=== PATIENT | male | born 1975 | race Caucasian/White ===

== ENCOUNTER 2024-11-22 10:30 | Outpatient (AMB) | payer OTHER, SELFPAY ==
--- NOTE | 2024-11-22 10:38 | MHC.PC.OV ---
Vital Signs 11/22/24 10:40 Height 6 ft 0.83 in Weight 244 lb BMI 32.3 BP 134/90 H Blood Pressure Location Lt brachial Position Sitting Pulse 88 Pulse Source Pulse Oximeter Temp 97.3 F Temp Source Skin Pulse Oximetry (%) 97 Oxygen Delivery Method Room Air Intake Visit Reasons: establish care Intake Note: Patient is a new patient here to establish care for Hx of Thyroid Cancer, Gout, DM, HTN. Transferring care from Dr Sreekanth Mckenzie ([facility]). Medical records have been requested and have not received. Pt decline flu shot today. 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 Helper: Not Required per policy Accompanied by: Self / Same As Patient Allergies No Known Allergies Allergy (Verified 11/22/24 10:40) Medication List - Last Reconciled 11/22/24 by Oliver Zelaya PA-C gemfibrozil 600 mg PO DAILY glipizide 10 mg PO DAILY levothyroxine 137 mcg PO DAILY lisinopril 10 mg PO DAILY metformin 1,000 mg PO DAILY semaglutide (Ozempic) 0.5 mg subcut QWEEK Tobacco use date assessed: 11/22/24 Dental Screening Dental Screen Date: 11/22/24 Did you have a dental visit in the last 12 months?: No Did you have a dental problem in the last 6 months where you did not have access to dental care?: No Was dental information given to patient?: No HPI establish care HPI Details Patient is a 49 year male here today for new patient visit. Previous PCP was at a [facility]. Patient has a past medical history significant for type 2 diabetes obesity, Thyroid Cancer ( Total thyroidecomy 20 years ago) , hypertension and hyperlipidemia. .. Type 2 diabetes: Not regularly checking his blood sugars per was on Ozempic 0.5 mg, metformin and glipizide. Has not been on any medication few weeks due to not having refills from previous PCP .. History of thyroid cancer status post total thyroidectomy: Continues on levothyroxine indefinitely. Has had any recent follow-up or surveillance for his thyroid cancer history. Will try to establish him with [facility] thyroid specialist. .. Hypertension: Patient's blood pressure elevated today in office, again has not been taking any medication over the last few weeks. Will reestablish taking lisinopril 10 mg. Advised on monitoring blood pressure at home as well. .. Obesity: He does understand his BMI is over 30 will try to work on being more physically active and adapt to better eating habits to reduce his weight Colorectal cancer screening: Willing to do Cologuard Vaccine: Decline lfu , up-to-date with tetanus, declines pneumonia vaccine [facility] Surgical History History of thyroid surgery History of cholecystectomy Social History (Updated 11/22/24 @ 11:16 by Oliver Zelaya PA-C) Housing: House Alcohol intake: current Alcohol intake frequency: a few times a week Alcohol type: hard liquor Patient Tobacco Use Status: Never used Tobacco e-Cigarette/Vaping Use: Never Used Second Hand Smoke Exposure: No Substance Use Type: Marijuana service: No Current occupational status: employed 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 1. Little interest or pleasure in doing things: not at all 2. Feeling down, depressed, or hopeless: not at all 3. Trouble falling or staying asleep, or sleeping too much: not at all 4. Feeling tired or having little energy: not at all 5. Poor appetite or overeating: not at all 6. Feeling bad about yourself - or that you are a failure or have let yourself or your family down: not at all 7. Trouble concentrating on things, such as reading the newspaper or watching television: not at all 8. Moving or speaking so slowly that other people could have noticed. Or the opposite - being so fidgety or restless that you have been moving around a lot more than usual: not at all 9. Thoughts that you would be better off or of hurting yourself in some way: not at all Total score: 0 Depression Screening Interpretation: Negative Depression Screening Done: Yes 57636 - PHQ-9 Billing: Yes Source: Developed by Drs. Oziel Sharif, Erna Bacon, Mart Espinoza and colleagues, with an educational zunilda from [employer] Thrive Questionnaire Date Thrive assessed: 11/22/24 I am a: Patient What is your living situation today?: I have a steady place to live Within the past 12 months, did the food you bought not last and you didn't have the money to get more?: Never true Within the past 12 months, did you worry whether your food would run out before you got money to buy more?: Never true Do you have trouble paying for medicines?: No Do you have trouble getting transportation to medical appointments?: No Do you have trouble paying your heating and electricity bill?: No Do you have trouble taking care of your child, family member or friend?: No Do you have trouble with day-to-day activities such as bathing, preparing meals, shopping, managing finances, etc.?: No Are you currently unemployed and looking for a job?: No Are you interested in more education?: No Please select the resources that you would like help with: None Currently or been in a relationship where the following occur: No concerns reported THRIVE Score: 0 AUDIT C Alcohol Use Questionnaire (AUDIT-C) 1. How often do you have a drink containing alcohol?: 2-3 times a week 2. How many drinks containing alcohol do you have on a typical day when you are drinking?: 1 or 2 3. How often do you have six or more drinks on one occasion?: Less than monthly Total Score: 4 LUC-7 AMB Questionnaire LUC-7 Date LUC - 7 assessed: 11/22/24 Feeling nervous, anxious, or on edge: 0 = Not at all Not being able to stop or control worryin = Not at all Worrying too much about different things: 0 = Not at all Trouble relaxin = Not at all Being so restless that it is hard to sit still: 0 = Not at all Becoming easily annoyed or irritable: 0 = Not at all Feeling afraid as if something awful might happen: 0 = Not at all Total LUC-7 score (0-4 normal; 5-9 mild; 10-14 moderate; 15-21 severe): 0 Source: Developed by Drs. Oziel Sharif, Erna Bacon, Mart Espinoza and colleagues, with an educational zunilda from [employer] LUC-7 Assessment Billing LUC-7 Assessment Tool: LUC-7 Assessment 26079 Review of Systems Const Denies headache(s) Eyes Denies loss of vision ENT Denies vertigo, Denies dizziness, Denies headache(s) and Denies sore throat Card Denies chest pain, Denies leg edema and Denies lightheadedness Resp Denies cough, Denies hemoptysis and Denies wheezing GI Denies abdominal pain, Denies melena, Denies constipation, Denies diarrhea and Denies vomiting Denies dysuria, Denies urinary frequency and Denies urinary urgency Musc Denies arthralgias, Denies joint swelling, Denies numbness and Denies tingling Neuro Denies Abnormal speech present, Denies behavioral changes, Denies vertigo, Denies dizziness, Denies headache(s), Denies loss of vision, Denies memory loss, Denies numbness and Denies tingling Psych Denies anxiety, Denies behavioral changes, Denies depression, Denies memory loss and Denies panic attacks David/Lymph Denies easy bleeding and Denies easy bruising Aller/Immun Denies wheezing Physical exam (Primary Care) Vital Signs: Last Vital Signs Temp 97.3 F 11/22/24 10:40 BMI result Body Mass Index 32.3 Tobacco/Smoking Status: Tobacco use Status Patient Tobacco Use Status Never used Tobacco 11/22/24 10:39 Depression Screening Interpretation: Negative Currently or been in a relationship where the following occur: No concerns reported Const General: healthy appearing, no acute distress, alert and awake Nutritional Appearance: well nourished Orientation/consciousness: oriented to person, oriented to place and oriented to time HENMT Ears: TM's normal bilaterally General nose exam: Normal nasal mucous membranes and turbinates present Eyes Conjunctivae: conjunctivae normal Sclerae: sclerae normal Pupils: Equal, round and reactive pupils present Neck Neck: Yes no lymphadenopathy and Yes no JVD Thyroid: Thyroid normal Carotids: no bruits Resp Effort & Inspection: normal respiratory effort and not tachypneic Auscultation: no crackles, no rales, no rhonchi and no wheezes Cardio Rate: regular rate Rhythm: regular rhythm Heart sounds: no murmurs and normal S1 and S2 GI Palpation (GI): Soft to palpation, nontender, no hepatomegaly and no splenomegaly Auscultation: normal bowel sounds Skin General skin exam: no rashes or lesions noted and dry skin Neuro General: oriented to person, oriented to place and oriented to time Cranial nerves: Yes Equal, round and reactive pupils present Speech: No Abnormal speech present Gait exam (Neuro): Normal gait present Motor exam (neuro): no tremor noted Extrem Right upper extremity: full ROM Left upper extremity: full ROM Right lower extremity: full ROM; no edema Left lower extremity: full ROM; no edema Psych Mental Status: mental status grossly normal Speech and movement: Normal speech and movement present Affect: normal affect Attitude: cooperative Thought process: Normal thought process present Coding Level of Care Code New Pt Level 4 (38034) Diagnoses Type 2 diabetes mellitus with diabetic polyneuropathy, without long-term current use of insulin E11.42 Diabetes mellitus correction insulin use: without correction use Diabetes mellitus complication status: with neurologic complications Diabetes mellitus complication detail: with polyneuropathy Primary hypertension I10 Hypertension type: primary hypertension Hypothyroidism (acquired) E03.9 Mixed hyperlipidemia E78.2 Hyperlipidemia type: mixed hyperlipidemia History of malignant neoplasm of thyroid Z85.850 Idiopathic chronic gout of foot without tophus, unspecified laterality M1A.0790 Gout site: foot Chronicity: chronic Laterality: unspecified laterality Presence of tophus: without tophus Gout etiology: idiopathic Class 1 obesity E66.811 Colon cancer screening Z12.11 Additional Codes PHQ-9 - 60544 - PHQ-9 Billing: Yes ([id number]) LUC-7 Assessment Billing - LUC-7 Assessment Tool: LUC-7 Assessment 28469 ([id number]) Assessment & Plan Assessment & Plan (1) DMII (diabetes mellitus, type 2): Code(s): E11.9 - Type 2 diabetes mellitus without complications Category: Medical Qualifiers: Diabetes mellitus correction insulin use: without intermediate manager use Diabetes mellitus complication status: with neurologic complications Diabetes mellitus complication detail: with polyneuropathy Qualified Code(s): E11.42 - Type 2 diabetes mellitus with diabetic polyneuropathy Plan: Patient has type 2 diabetes and was on glipizide, metformin and Ozempic 0.5 mg weekly. Has not been on these medications for quite some time. He does not regularly checking his blood sugars. He is interested in a Amer[employer]re Jv continuous glucose monitor for ease of use. Goal A1c is to be below 7.0 (2) HTN (hypertension): Code(s): I10 - Essential (primary) hypertension Category: Medical Qualifiers: Hypertension type: primary hypertension Qualified Code(s): I10 - Essential (primary) hypertension Plan: Patient's blood pressure elevated today in office. Has not been on medication over last 2-3 weeks due to changing insurance and providers. Will restart lisinopril 10 mg with goal blood pressure to be below 140/90 (3) Hypothyroidism (acquired): Code(s): E03.9 - Hypothyroidism, unspecified Category: Medical Plan: Patient is status post total thyroidectomy secondary to thyroid cancer. Continues to have acquired hypothyroidism thus uses levothyroxine 137 mcg. Will try to establish him with endocrinology due to his history of thyroid cancer for surveillance (4) HLD (hyperlipidemia): Code(s): E78.5 - Hyperlipidemia, unspecified Category: Medical Qualifiers: Hyperlipidemia type: mixed hyperlipidemia Qualified Code(s): E78.2 - Mixed hyperlipidemia Plan: Patient continues on gemfibrozil for his cholesterol. Will recheck fasting lipids in if LDL 100 consider statin therapy. Goal LDL to be below 100 (5) History of malignant neoplasm of thyroid: Code(s): Z85.850 - Personal history of malignant neoplasm of thyroid Category: Medical Plan: Will try to establish him with thyroid specialist due to his history of thyroid cancer and status post total thyroidectomy (6) Gout: Code(s): M10.9 - Gout, unspecified Category: Medical Qualifiers: Gout site: foot Chronicity: chronic Laterality: unspecified laterality Presence of tophus: without tophus Gout etiology: idiopathic Qualified Code(s): M1A.0790 - Idiopathic chronic gout, unspecified ankle and foot, without tophus (tophi) Plan: Has history of gout and was on allopurinol 100 mg daily. No reason gout flares (7) Class 1 obesity: Code(s): E66.811 - Obesity, class 1 Category: Medical Plan: Patient does understand his BMI is over 30 will try to work on being more physically active and adapt to better eating habits to reduce his weight. (8) Colon cancer screening: Code(s): Z12.11 - Encounter for screening for malignant neoplasm of colon Category: Medical Plan: In need of colon cancer screening Orders: Orders Lipid Panel Today E78.5 - Hyperlipidemia, unspecified TSH reflex Free T4 Today E03.9 - Hypothyroidism, unspecified Comprehensive [place]. Panel Fast Today E11.9 - Type 2 diabetes mellitus without complications Hemoglobin A1c Today E11.9 - Type 2 diabetes mellitus without complications Uric Acid Today M1A.0790 - Idiopathic chronic gout, unspecified ankle and foot, without tophus (tophi) Microalbumin, Random (w Creat) Today I10 - Essential (primary) hypertension Complete Blood Count no Diff Today E11.9 - Type 2 diabetes mellitus without complications Referrals Cologuard Test Z12.11 - Encounter for screening for malignant neoplasm of colon Endocrinology Referral E03.9 - Hypothyroidism, unspecified, Z85.850 - Personal history of malignant neoplasm of thyroid Medications: New levothyroxine 137 mcg PO DAILY 90 days 90 tabs 1RF E03.9 - Hypothyroidism, unspecified lisinopril 10 mg PO DAILY 90 tabs 1RF I10 - Essential (primary) hypertension glipizide 10 mg PO DAILY 90 days 90 tabs 1RF E11.9 - Type 2 diabetes mellitus without complications metformin 1,000 mg PO DAILY 90 days 90 tabs 1RF E11.9 - Type 2 diabetes mellitus without complications gemfibrozil 600 mg PO DAILY 90 days 90 tabs 1RF E78.5 - Hyperlipidemia, unspecified blood-glucose meter,continuous (FreeStyle Jv 3 [place]) As directed 1 ea 0RF E11.9 - Type 2 diabetes mellitus without complications, M10.9 - Gout, unspecified allopurinol 100 mg PO DAILY 90 tabs 1RF M10.9 - Gout, unspecified semaglutide (Ozempic) 0.5 mg (0.736 mL) subcut QWEEK 4 weeks 3 mL 3RF E11.9 - Type 2 diabetes mellitus without complications blood-glucose sensor (FreeStyle Jv 3 Sensor device) As directed 1 ea 6RF E11.9 - Type 2 diabetes mellitus without complications
[2024-11-22 10:40] VITALS: BP 134/90; PULSE 88; TEMP 36.3; O2SAT 97; BMI 32.3
== END 2024-11-22 11:28 | disposition home or self-care (01) ==
PROVIDERS: PCP Physician Assistant; Visit Provider Physician Assistant
DX: E11.42 Type 2 diabetes mellitus with diabetic polyneuropathy (principal); I10 Essential (primary) hypertension; E03.9 Hypothyroidism, unspecified; E78.2 Mixed hyperlipidemia; Z85.850 Personal history of malignant neoplasm of thyroid; Z87.39 Personal history of other diseases of the musculoskeletal system and connective tissue; Z68.32 Body mass index [BMI] 32.0-32.9, adult; E66.811 Obesity, class 1; Z12.11 Encounter for screening for malignant neoplasm of colon

== ENCOUNTER → 2024-11-22 10:30 | Outpatient (BNVA) | payer OTHER, SELFPAY | PROVIDERS: PCP Physician Assistant; Visit Provider Physician Assistant | DX: E11.42 Type 2 diabetes mellitus with diabetic polyneuropathy (principal); I10 Essential (primary) hypertension; E03.9 Hypothyroidism, unspecified; E78.2 Mixed hyperlipidemia; M1A.0790 Idiopathic chronic gout, unspecified ankle and foot, without tophus (tophi); E66.811 Obesity, class 1; Z68.32 Body mass index [BMI] 32.0-32.9, adult; Z85.850 Personal history of malignant neoplasm of thyroid; Z71.3 Dietary counseling and surveillance | CPT/HCPCS: 96127; 99202 ==

== ENCOUNTER 2025-01-18 14:56 | Outpatient (AMB) | payer OTHER, SELFPAY ==
--- NOTE | 2025-01-18 15:00 | A.OFFVIS_ITS ---
Vital Signs 01/18/25 15:02 Height 6 ft Weight 247 lb 2.211 oz BMI 33.5 BP 138/90 H Blood Pressure Location Rt brachial Position Sitting Pulse 90 Pulse Source Pulse Oximeter Pulse Oximetry (%) 97 Oxygen Delivery Method Room Air Intake Visit Reasons: Hypothyroidism Intake Note: New patient present today for Hypothyroidism office visit. 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 Required: No Accompanied by: Spouse Allergies No Known Allergies Allergy (Verified 01/18/25 15:02) Medication List - Last Reconciled 01/18/25 by Zaida Jose MD allopurinol 100 mg PO DAILY blood-glucose meter,continuous (FreeStyle Jv 3 [place]) As directed blood-glucose sensor (FreeStyle Jv 3 Sensor device) As directed gemfibrozil 600 mg PO DAILY 90 days glipizide 10 mg PO DAILY 90 days levothyroxine 175 mcg PO DAILY 30 days lisinopril 10 mg PO DAILY metformin 1,000 mg PO DAILY 90 days metoprolol succinate ER 25 mg PO DAILY semaglutide (Ozempic) 0.5 mg (0.736 mL) subcut QWEEK 4 weeks HPI Comments Details: 49-year-old male here today for establishing care of past history of thyroid cancer status post total thyroidectomy in now with postsurgical hypothyroidism. Here with [facility]. History of thyroid cancer in detail 1991: 17 years old , lobectomy with Dr. Yolande Oscar , unclear what type of thyroid cancer and what side was removed Lost to follow up 2010:s/p completion thyroidectomy [facility] 2010: s/p SUN treatment , says was in the hospital for 3 days lost to follow up again No recent US of the neck Was just seeing PCP: Dr. Raymond at [facility] office , they didnt give history of thyroid cancer to PCP Currently on levothyroxine 175 mcg daily , says misses dose once a while He currenlty takes it between 7 to 9 pm, dinner 5 pm , taking it with other pills No compressive symptoms Patient currently denies heat or cold intolerance, diarrhea or constipation, hair loss, palpitation, anxiety, weight changes, mood changes, low energy, changes in appearance of eyes or vision changes, tremors, increased diaphoresis or dry skin. ? Patient denies any history of childhood neck radiation. Denies having ever used lithium, amiodarone or biotin supplements. Patient denies any family history of thyroid cancer . Mother : hypothyroidism Never smoker Smokes marijuana Works with [employer] Physical exam General: sitting comfortably in no acute distress HEENT: normocephalic/atraumatic, Neck: supple, no palpable lymph nodes or masses Cardiac: normal heart sounds Pulm: normal breath sounds B/L, no added breath sounds Abd: not distended, no tenderness Extremities: no edema, no signs of myxedema PFSH Surgical History History of thyroid surgery History of cholecystectomy Social History (Updated 11/22/24 @ 11:16 by Oliver Zleaya PA-C) Housing: House Alcohol intake: current Alcohol intake frequency: a few times a week Alcohol type: hard liquor Patient Tobacco Use Status: Never used Tobacco e-Cigarette/Vaping Use: Never Used Second Hand Smoke Exposure: No Substance Use Type: Marijuana service: No Current occupational status: employed 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 Yolande Oscar and was found to have thyroid cancer. Subsequently was lost to follow up and then in 2009 underwent completion thyroidectomy at [facility] and radioactive iodine treatment, unknown dose,, and then lost to follow up again. We do not have any of these records. Unclear AJCC stage, unknown SHAMEKA initial risk of recurrence. Has not been followed recently so we do not have SHAMEKA current status either. Patient has just being seen his primary care physician for the last few years, and did not mentioned to them that he had history of thyroid cancer. He just recently established care at our hospital with PCP in our system. He does not have any compressive symptoms, no palpable lymph nodes or masses on my exam today. He is on levothyroxine 175 mcg daily. He has been taking it at night along with a his other meds, sometimes too soon after dinner, I explained to the patient importance of taking the medication 1st thing in the morning on an empty stomach and waiting at least 40 minutes to an hour before having breakfast or tea or coffee to allow for adequate absorption. I explained to the patient importance of monitoring for recurrence with surveillance ultrasounds as well as tumor markers. At this time we do not even know what type of thyroid cancer he had. We will check thyroglobulin tumor markers as well as thyroid function tests. We will also get an ultrasound of the neck. We will try to obtain his pathology from 2009 at least. Plan: -continue levothyroxine 175 mcg daily -ordered ultrasound of the neck -ordered TSH, free T4, TG and TG antibody levels -obtain records from [facility] from 2009 for surgical pathology -follow up in 6 weeks (2) Hypothyroidism (acquired): Code(s): E03.9 - Hypothyroidism, unspecified Category: Medical Plan: No recent TFTs in the system. Continue levothyroxine 175 mcg daily, obtain TSH, free T4 Plan I spent 45 minutes in reviewing the record, seeing the patient and documenting in the medical record. Orders: Orders US soft tiss head and/or neck Today E03.9 - Hypothyroidism, unspecified, Z85.850 - Personal history of malignant neoplasm of thyroid Thyroglobulin Today E03.9 - Hypothyroidism, unspecified, Z85.850 - Personal history of malignant neoplasm of thyroid Thyroglobulin Antibodies Today E03.9 - Hypothyroidism, unspecified, Z85.850 - Personal history of malignant neoplasm of thyroid Thyroid Stimulating Hormone Today E03.9 - Hypothyroidism, unspecified, Z85.850 - Personal history of malignant neoplasm of thyroid Free T4 (Free Thyroxine) Today E03.9 - Hypothyroidism, unspecified, Z85.850 - Personal history of malignant neoplasm of thyroid Thyroglobulin Tumor Marker Today E03.9 - Hypothyroidism, unspecified, Z85.850 - Personal history of malignant neoplasm of thyroid Patient Instructions: do blood work today Do ultrasound of the neck, somebody is going to call you to schedule this Follow up in 6 weeks to discuss results Coding Level of Care Code New Pt Level 4 (37560) Complex EM visit Add On G2211 Diagnoses History of malignant neoplasm of thyroid Z85.850 Hypothyroidism (acquired) E03.9 Time Spent (min) 45
[2025-01-18 15:02] VITALS: BP 138/90; PULSE 90; O2SAT 97; BMI 33.5
== END 2025-01-18 15:35 | disposition home or self-care (01) ==
LOC: HO.ENCR 14:56
PROVIDERS: PCP Physician Assistant; Visit Provider Student in an Organized Health Care Education/Training Program
DX: Z85.850 Personal history of malignant neoplasm of thyroid (principal); E03.9 Hypothyroidism, unspecified
CPT/HCPCS: 99204; G2211

== ENCOUNTER 2025-01-18 14:56 | Outpatient (REF) | payer OTHER, SELFPAY ==
[2025-01-18 16:51] LABS: Free T4 (Free Thyroxine) 1.08 ng/dL (0.71-1.85); Thyroid Stimulating Hormone 9.15 uIU/mL (0.32-4.0)
[2025-01-19 22:33] LABS: Thyroglobulin <0.1 ng/mL; Thyroglobulin Antibodies <1 IU/mL (< or = 1)
[2025-01-23 07:24] LABS: Thyroglobulin Antibody <1 IU/mL (<=1); Thyroglobulin Level <0.1 ng/mL
== END 2025-01-18 14:57 | disposition home or self-care (01) ==
LOC: HO.LAB 14:56
PROVIDERS: PCP Physician Assistant; Visit Provider Student in an Organized Health Care Education/Training Program
DX: E03.9 Hypothyroidism, unspecified (principal); Z85.850 Personal history of malignant neoplasm of thyroid; Z76.89 Persons encountering health services in other specified circumstances
CPT/HCPCS: 36415; 84432; 84439; 84443; 86800; 99202

== ENCOUNTER 2025-03-24 09:34 | Outpatient (REF) | payer OTHER, SELFPAY ==
[2025-03-24 10:25] LABS: Hematocrit 41.1 % (42.0-52.0); Mean Corpuscular HGB Conc 34.1 g/dl (31.0-36.0); Mean Corpuscular Hemoglobin 29.2 pg (27.0-33.0); Mean Corpuscular Volume 85.8 fL (80.0-98.0); Mean Platelet Volume 10.5 fL (9.4-12.4); Platelet Count 210 X10*3/uL (160-400); Red Blood Count 4.79 X10*6/uL (4.60-5.80); Red Cell Distribution Width 12.6 % (11.0-16.0); White Blood Count 5.3 X10*3/uL (4.8-10.8)
[2025-03-24 10:36] LABS: Estimated Average Glucose 235 mg/dL; Hemoglobin A1C 305.5076 umol/L; Hemoglobin A1c % 9.8 % (<6.0)
[2025-03-24 10:57] LABS: Alanine Aminotransferase 41 U/L (0-40); Albumin Level 4.6 g/dL (3.5-5.0); Alkaline Phosphatase 73 U/L (39-117); Anion Gap 14 (12-20); Aspartate Amino Transferase 29 U/L (5-37); Bilirubin Total 0.8 mg/dL (0.0-1.0); Blood Urea Nitrogen 18 mg/dL (9-16); Calcium 9.5 mg/dL (8.4-10.2); Carbon Dioxide 26 mmol/L (22-29); Chloride 104 mmol/L (96-108); Cholesterol 178 mg/dL (<200); Estimated Glomerular Filt Rate > 60; Glucose Fasting 138 mg/dL (60-99); HDL Cholesterol 32 mg/dL (>40); LDL Cholesterol Calculated 92 mg/dL (<100); Potassium 4.3 mmol/L (3.3-5.1); Sodium 140 mmol/L (135-145); Total Protein 7.5 g/dL (6.5-8.0); Triglycerides 274 mg/dL (<150)
[2025-03-24 11:19] LABS: Uric Acid 7.1 mg/dL (3.4-7.0)
== END 2025-03-24 09:35 | disposition home or self-care (01) ==
LOC: HO.LAB 09:34
PROVIDERS: Absent Provider Student in an Organized Health Care Education/Training Program; PCP Physician Assistant; Visit Provider Physician Assistant
DX: E11.9 Type 2 diabetes mellitus without complications (principal); E78.5 Hyperlipidemia, unspecified; E03.9 Hypothyroidism, unspecified; M1A.0790 Idiopathic chronic gout, unspecified ankle and foot, without tophus (tophi)
CPT/HCPCS: 36415; 80053; 80061; 83036; 84439; 84443; 84550; 85027

== ENCOUNTER 2025-03-27 16:01 | Outpatient (REF) | payer OTHER, SELFPAY ==
--- NOTE | ~2025-03-27 | US_ITS ---
CLINICAL HISTORY: E03.9 - Hypothyroidism, unspecified --- Additional Notes or Special Instructions: H X OF MALIGNANT NEOPLASM OF THYROID Soft tissue ultrasound of the neck Comparison: None Findings: Grayscale and color Doppler images of lymph nodes in the neck were obtained with a high-frequency linear transducer in a patient status post thyroidectomy due to malignancy. No lymph nodes of abnormal morphology or size. Right neck level: IA: Measuring 0.7 x 0.6 x 0.7 cm and 0.8 x 0.5 x 0.4 cm IB: Measuring 1.0 x 0.5 x 1.0 cm 0.7 x 0.4 x 0.9 cm II: Measuring 2.5 x 0.5 x 1.1 cm III: Measuring 1.2 x 0.4 x 0.5 cm IV: None V: None Left neck level: IA: None IB: Measuring 0.7 x 0.5 x 0.6 cm 0.9 x 0.6 x 0.5 cm II: None III: Measuring 2.0 x 0.9 x 0.8 cm and 0.8 x 0.3 x 0.8 cm IV: None V: Measuring 0.8 x 0.4 x 0.8 cm and 0.8 x 0.4 x 0.7 cm Impression: No suspicious lymph nodes. This document has been electronically signed by: Bernadine Mayers MD on 03/28/2025 21:47:03
== END 2025-03-27 16:02 | disposition home or self-care (01) ==
LOC: HO.US 16:01
PROVIDERS: PCP Physician Assistant; Visit Provider Student in an Organized Health Care Education/Training Program
DX: E03.9 Hypothyroidism, unspecified (principal); Z85.850 Personal history of malignant neoplasm of thyroid
CPT/HCPCS: 76536

== ENCOUNTER → 2025-03-27 16:03 | Outpatient (BNV) | payer OTHER, SELFPAY | PROVIDERS: PCP Physician Assistant; Visit Provider Radiology Diagnostic Radiology | DX: E03.9 Hypothyroidism, unspecified (principal) | CPT/HCPCS: 76536 ==

== ENCOUNTER 2025-04-04 15:58 | Outpatient (AMB) | payer OTHER, SELFPAY ==
--- OUTSIDE RECORDS SUMMARY | 2025-04-04 16:01 | XMS_ITS | Encounter Summary ---
Author Organization [facility] Address [address] [place] [address] Care Team Providers Care Internal Grinding Machine Operator Name Role Phone Rogerio Pate MD Primary Care Provider + [phone] [facility], Pcp Primary Care Provider [facility] Rogerio Pate MD Primary Care Provider + [phone] Reason for Visit * Reason Onset Date Comments APPOINTMENT 03/17/2013 Encounter Details Date Type Department Care Team Description 03/17/2013 Telephone Adult Medicine [address] [id number] Orlin Solis MD APPOINTMENT Social History Tobacco Use Types Packs/Day Years Used Date Smoking Tobacco: Never Smokeless Tobacco: Never Alcohol Use Standard Drinks/Week Comments Not Asked 0 (1 standard drink = 0.6 oz pur e alcohol) Sex Assigned at Date Recorded Not on file documented as of this encounter Miscellaneous Notes * Telephone Encounter - Radha Meyers M.A. - 03/17/2013 3:57 PM EDT Message left for patient to return my call. * Telephone Encounter - Mildred Paul - 03/17/2013 1:42 PM EDT Follow up appointment not available. Please call patient to book-no open NON PUBLIC SLOTS. Appointment needed patient had a follow up with Dr Solis today however because he is at work it needs to be r/s next appt too far, please call to book sooner if possible documented in this encounter Plan of Treatment Not on file documented as of this encounter Visit Diagnoses Not on filedocumented in this encounter Care Teams Internal Grinding Machine Operator Relationship Specialty Start Date End Date Rogerio Pate MD [address] [place] [id number] PCP - General 04/13/1997 09/13/13 [facility], [address] [id number] PCP - General Internal Medicine 09/14/13 09/14/13 Rogerio Pate MD [address] [place] [id number] PCP - General Internal Medicine 09/15/13 documented as of this encounter
--- NOTE | 2025-04-04 16:05 | A.OFFPC_ITS ---
Vital Signs 04/04/25 16:06 Height 6 ft Weight 238 lb 6 oz BMI 32.3 BP 136/68 Blood Pressure Location Lt brachial Position Sitting Pulse 86 Pulse Source Pulse Oximeter Temp 97.3 F Temp Source Temporal Artery Scan Pulse Oximetry (%) 97 Oxygen Delivery Method Room Air Intake Visit Reasons: f/u DMII / HTN Intake Note: Patient is here to follow up on DM, HTN. Sales Contracts Analyst Required: No Air Intercept Controller: Not Required per policy Accompanied by: Self / Same As Patient Allergies lisinopril Adverse Reaction (Intermediate, Uncoded 04/04/25 16:18) Dizziness Medication List - Last Reconciled 04/04/25 by Oliver Zelaya PA-C allopurinol 100 mg PO DAILY gemfibrozil 600 mg PO DAILY 90 days glipizide 10 mg PO DAILY 90 days levothyroxine 175 mcg PO DAILY 30 days lisinopril 10 mg PO DAILY metformin 1,000 mg PO DAILY 90 days metoprolol succinate ER 25 mg PO DAILY semaglutide (Ozempic) 0.5 mg (0.736 mL) subcut QWEEK 4 weeks Tobacco use date assessed: 04/04/25 Dental Screening Dental Screen Date: 11/22/24 HPI f/u DMII / HTN HPI Details Patient is a 49 year male here today for a follow-up visit. Patient has a past medical history significant for type 2 diabetes obesity, Thyroid Cancer ( Total thyroidecomy 20 years ago) , hypertension and hyperlipidemia. .. Type 2 diabetes: Not regularly checking his blood sugars per was on Ozempic 0.5 mg, metformin and glipizide. Most recent fasting blood sugar 138 and A1c above 9. He is not having any polydipsia or polyuria. PLAN: Will increase his Ozempic to 1 mg for better glycemic control .. History of thyroid cancer status post total thyroidectomy: Continues on levothyroxine indefinitely. Has been taking his levothyroxine morning now. Most recent TSH stable, has establish care with thyroid human resources compliance manager .. Hypertension: Blood pressure acceptable today in office. He has stopped taking lisinopril 10 mg as he felt dizzy. Will transitioned to losartan for renal protection. .. Obesity: He does understand his BMI is over 30 will try to work on being more physically active and adapt to better eating habits to reduce his weight Laboratory Tests 01/18/25 03/24/25 16:02 09:47 Fasting Glucose 138 H Hemoglobin A1c % 9.8 H Uric Acid 7.1 H Triglycerides 274 H TSH 9.15 H 4.00 PFSH Surgical History History of thyroid surgery History of cholecystectomy Social History Housing: House Alcohol intake: current Alcohol intake frequency: a few times a week Alcohol type: hard liquor Patient Tobacco Use Status: Never used Tobacco e-Cigarette/Vaping Use: Never Used Second Hand Smoke Exposure: No Substance Use Type: Marijuana service: No Current occupational status: employed 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- [employer] Cognitive needs: No Hearing needs: No Vision needs: Yes (Glasses) Questionnaire Thrive Questionnaire Date Thrive assessed: 11/22/24 I am a: Patient What is your living situation today?: I have a steady place to live Within the past 12 months, did the food you bought not last and you didn't have the money to get more?: Never true Within the past 12 months, did you worry whether your food would run out before you got money to buy more?: Never true Do you have trouble paying for medicines?: No Do you have trouble getting transportation to medical appointments?: No Do you have trouble paying your heating and electricity bill?: No Do you have trouble taking care of your child, family member or friend?: No Do you have trouble with day-to-day activities such as bathing, preparing meals, shopping, managing finances, etc.?: No Are you currently unemployed and looking for a job?: No Are you interested in more education?: No Please select the resources that you would like help with: None Currently or been in a relationship where the following occur: No concerns reported THRIVE Score: 0 LUC-7 AMB Questionnaire LUC-7 Date LUC - 7 assessed: 11/22/24 Source: Developed by Drs. Oziel Sharif, Erna Bacon, Mart Espinoza and colleagues, with an educational zunilda from [employer]. Review of Systems Const Denies headache(s) Eyes Denies loss of vision ENT Denies vertigo, Denies dizziness, Denies headache(s) and Denies sore throat Card Denies chest pain, Denies leg edema and Denies lightheadedness Resp Denies cough, Denies hemoptysis and Denies wheezing GI Denies abdominal pain, Denies melena, Denies constipation, Denies diarrhea and Denies vomiting Denies dysuria, Denies urinary frequency and Denies urinary urgency Musc Denies arthralgias, Denies joint swelling, Denies numbness and Denies tingling Neuro Denies Abnormal speech present, Denies behavioral changes, Denies vertigo, Denies dizziness, Denies headache(s), Denies loss of vision, Denies memory loss, Denies numbness and Denies tingling Psych Denies anxiety, Denies behavioral changes, Denies depression, Denies memory loss and Denies panic attacks David/Lymph Denies easy bleeding and Denies easy bruising Aller/Immun Denies wheezing Physical exam (Primary Care) Vital Signs: Last Vital Signs Temp 97.3 F 04/04/25 16:06 Pulse 86 04/04/25 16:06 BP 136/68 04/04/25 16:06 Pulse Ox 97 04/04/25 16:06 Oxygen Delivery Method Room Air 04/04/25 16:06 BMI result Body Mass Index 32.3 BMI Assessment/Plan discussion: High BMI High, discussed plan: lifestyle, weight reduction, dietary and physical activity Tobacco/Smoking Status: Tobacco use Status Tobacco use date assessed 04/04/25 04/04/25 16:11 Patient Tobacco Use Status Never used Tobacco 04/04/25 16:11 e-Cigarette/Vaping Use Never Used 04/04/25 16:11 Thrive Assessment: Date of Thrive Assessment Date Thrive assessed 11/22/24 04/04/25 16:11 Currently or been in a relationship where the following occur: No concerns reported Const Other: Obese General: healthy appearing, no acute distress, alert and awake Nutritional Appearance: well nourished Orientation/consciousness: oriented to person, oriented to place and oriented to time HENMT Ears: TM's normal bilaterally General nose exam: Normal nasal mucous membranes and turbinates present Eyes Conjunctivae: conjunctivae normal Sclerae: sclerae normal Pupils: Equal, round and reactive pupils present Neck Neck: Yes no lymphadenopathy and Yes no JVD Thyroid: Thyroid normal Carotids: no bruits Resp Effort & Inspection: normal respiratory effort and not tachypneic Auscultation: no crackles, no rales, no rhonchi and no wheezes Cardio Rate: regular rate Rhythm: regular rhythm Heart sounds: no murmurs and normal S1 and S2 GI Palpation (GI): Soft to palpation, nontender, no hepatomegaly and no splenomegaly Auscultation: normal bowel sounds Skin General skin exam: no rashes or lesions noted and dry skin Neuro General: oriented to person, oriented to place and oriented to time Cranial nerves: Yes Equal, round and reactive pupils present Speech: No Abnormal speech present Gait exam (Neuro): Normal gait present Motor exam (neuro): no tremor noted Extrem Right upper extremity: full ROM Left upper extremity: full ROM Right lower extremity: full ROM; no edema Left lower extremity: full ROM; no edema Psych Mental Status: mental status grossly normal Speech and movement: Normal speech and movement present Affect: normal affect Attitude: cooperative Thought process: Normal thought process present Coding Level of Care Code Est Pt Level 4 (00894) Diagnoses Type 2 diabetes mellitus with diabetic polyneuropathy, without long-term current use of insulin E11.42 Diabetes mellitus complication detail: with polyneuropathy Diabetes mellitus complication status: with neurologic complications Diabetes mellitus prison insulin use: without prison use Primary hypertension I10 Hypertension type: primary hypertension Hypothyroidism (acquired) E03.9 Mixed hyperlipidemia E78.2 Hyperlipidemia type: mixed hyperlipidemia History of malignant neoplasm of thyroid Z85.850 Class 1 obesity E66.811 Assessment & Plan Assessment & Plan (1) DMII (diabetes mellitus, type 2): Code(s): E11.9 - Type 2 diabetes mellitus without complications Category: Medical Qualifiers: Diabetes mellitus complication detail: with polyneuropathy Diabetes mellitus complication status: with neurologic complications Diabetes mellitus rayon winder insulin use: without prison use Qualified Code(s): E11.42 - Type 2 diabetes mellitus with diabetic polyneuropathy Plan: Patient's type 2 diabetes suboptimally controlled with A1c above 9. Will increase his Ozempic to 1 mg weekly for better glycemic control. He has lost 10 lb since last office visit. Will discontinue glipizide as he has been on this for quite some in concern for pancreatic burnout. Will consider increasing his metformin to a 1000 b.i.d. He does not often take his blood sugar though when he does he reports his blood sugars are usually in the 200s. Goal A1c is to be below 7.0 (2) HTN (hypertension): Code(s): I10 - Essential (primary) hypertension Category: Medical Qualifiers: Hypertension type: primary hypertension Qualified Code(s): I10 - Essential (primary) hypertension Plan: Patient's blood pressure acceptable today in office.. He had restarted lisinopril 10 mg though felt dizzy with the medication. will transitioned to losartan 25 mg for renal protection. Goal blood pressure to be below 140/90 (3) Hypothyroidism (acquired): Code(s): E03.9 - Hypothyroidism, unspecified Category: Medical Plan: Patient is status post total thyroidectomy secondary to thyroid cancer. Continues to have acquired hypothyroidism thus uses levothyroxine 137 mcg. He has establish with endocrinology thyroid specialist. Most recent TSH stabilized (4) HLD (hyperlipidemia): Code(s): E78.5 - Hyperlipidemia, unspecified Category: Medical Qualifiers: Hyperlipidemia type: mixed hyperlipidemia Qualified Code(s): E78.2 - Mixed hyperlipidemia Plan: Patient continues on gemfibrozil for his cholesterol. Will recheck fasting lipids in if LDL 100 consider statin therapy. Goal LDL to be below 100 (5) History of malignant neoplasm of thyroid: Code(s): Z85.850 - Personal history of malignant neoplasm of thyroid Category: Medical Plan: He is status post thyroidectomy, has establish care with a new human resources compliance manager here in [place]. He has started taking his levothyroxine in the morning on an empty stomach. Most recent TSH was stable. (6) Class 1 obesity: Code(s): E66.811 - Obesity, class 1 Category: Medical Plan: Have noted weight loss since last office visit, will increase his Ozempic dose to 1 mg in hopes he will be able to lose more weight and get better glycemic control. Orders: Orders Hemoglobin A1c 04/04/25 E11.42 - Type 2 diabetes mellitus with diabetic polyneuropathy Comprehensive [place]. Panel Fast 04/04/25 E11.42 - Type 2 diabetes mellitus with diabetic polyneuropathy Complete Blood Count no Diff 04/04/25 E11.42 - Type 2 diabetes mellitus with diabetic polyneuropathy TSH reflex Free T4 04/04/25 E03.9 - Hypothyroidism, unspecified Medications: New losartan 25 mg PO DAILY 30 tabs 1RF 30 days I10 - Essential (primary) hypertension semaglutide (Ozempic) 1 mg (0.75 mL) subcut QWEEK 3 mL 3RF 4 weeks E11.42 - Type 2 diabetes mellitus with diabetic polyneuropathy Refilled levothyroxine 175 mcg PO DAILY 30 tabs 3RF 30 days E03.9 - Hypothyroidism, unspecified metformin 1,000 mg PO DAILY 90 tabs 1RF 90 days E11.9 - Type 2 diabetes mellitus without complications allopurinol 100 mg PO DAILY 90 tabs 1RF M10.9 - Gout, unspecified gemfibrozil 600 mg PO DAILY 90 tabs 1RF 90 days E78.5 - Hyperlipidemia, unspecified Discontinued semaglutide (Ozempic) Discontinued Reason: Doctor's Order 0.5 mg (0.736 mL) subcut QWEEK 4 weeks 3 mL 3RF E11.9 - Type 2 diabetes mellitus without complications
[2025-04-04 16:06] VITALS: BP 136/68; PULSE 86; TEMP 36.3; O2SAT 97; BMI 32.3
== END 2025-04-04 16:28 | disposition home or self-care (01) ==
LOC: HO.HMCH 15:59
PROVIDERS: PCP Physician Assistant; Visit Provider Physician Assistant
DX: E11.42 Type 2 diabetes mellitus with diabetic polyneuropathy (principal); I10 Essential (primary) hypertension; E66.811 Obesity, class 1; Z68.32 Body mass index [BMI] 32.0-32.9, adult; E03.9 Hypothyroidism, unspecified; E78.2 Mixed hyperlipidemia; Z85.850 Personal history of malignant neoplasm of thyroid

== ENCOUNTER → 2025-04-04 15:58 | Outpatient (BNVA) | payer OTHER, SELFPAY | PROVIDERS: PCP Physician Assistant; Visit Provider Physician Assistant | DX: E11.42 Type 2 diabetes mellitus with diabetic polyneuropathy (principal); I10 Essential (primary) hypertension; E89.0 Postprocedural hypothyroidism; E78.2 Mixed hyperlipidemia; E66.811 Obesity, class 1; Z85.850 Personal history of malignant neoplasm of thyroid; Z68.32 Body mass index [BMI] 32.0-32.9, adult | CPT/HCPCS: 99212 ==

== ENCOUNTER 2025-04-09 10:47 | Outpatient (AMB) | payer OTHER, SELFPAY ==
--- NOTE | 2025-04-09 10:49 | A.OFFVIS_ITS ---
Vital Signs 04/09/25 10:50 Height 6 ft Weight 235 lb 14.314 oz BMI 32.0 BP 138/92 H Blood Pressure Location Lt brachial Position Sitting Pulse 86 Pulse Source Pulse Oximeter Pulse Oximetry (%) 97 Oxygen Delivery Method Room Air Intake Visit Reasons: Hypothyroidism Intake Note: Patient present today for Hypothyroidism office visit. White Sourer Required: No Accompanied by: Self / Same As Patient Allergies lisinopril Adverse Reaction (Intermediate, Uncoded 04/09/25 10:55) Dizziness Medication List - Last Reconciled 04/09/25 by Zaida Jose MD allopurinol 100 mg PO DAILY gemfibrozil 600 mg PO DAILY 90 days levothyroxine 175 mcg PO DAILY 30 days losartan 25 mg PO DAILY 30 days metformin 1,000 mg PO DAILY 90 days metoprolol succinate ER 25 mg PO DAILY semaglutide (Ozempic) 1 mg (0.75 mL) subcut QWEEK 4 weeks HPI Comments Details: 49-year-old male here today for follow up of past history of thyroid cancer status post total thyroidectomy in now with postsurgical hypothyroidism. Here with Kaylin. History of thyroid cancer in detail 1991: 17 years old , lobectomy with Dr. Yolande Oscar , unclear what type of thyroid cancer and what side was removed Lost to follow up 2010:s/p completion thyroidectomy [place] [facility] 2010: s/p SUN treatment , says was in the hospital for 3 days lost to follow up again No recent US of the neck 02/07/2021: Per PCP notes had a negative whole-body scan 02/13/2021: Stimulated TG was undetectable per PCP notes Apparently saw Dr. Hernandez at [facility] in May 2021 with no concerns at follow up at that time. Then again lost to follow up. Was just seeing PCP: Dr. Raymond at [facility] office Currently on levothyroxine 175 mcg daily , says misses dose once a while He currenlty takes it between 7 to 9 pm, dinner 5 pm , taking it with other pills Patient denies any history of childhood neck radiation. Denies having ever used lithium, amiodarone or biotin supplements. Patient denies any family history of thyroid cancer . Mother : hypothyroidism Never smoker Smokes marijuana Works with [employer] Interval history 01/18/2025: TSH 9.15, free T4 1.08, TG less than 0.1, TG antibody less than 1 Advised about strict adherence to levothyroxine 03/24/2025: TSH 4, free T4-1 , now taking levothyroxine 175 mcg 1st thing in the morning on an empty stomach and waits at least an hour before breakfast, does not take it with other medications, thinks he missed 1 pill over the past many weeks 03/28/2025: Ultrasound of the neck showed normal-appearing bilateral lymph nodes No compressive symptoms Patient currently denies heat or cold intolerance, diarrhea or constipation, hair loss, palpitation, anxiety, weight changes, mood changes, low energy, changes in appearance of eyes or vision changes, tremors, increased diaphoresis or dry skin. ? Physical exam General: sitting comfortably in no acute distress HEENT: normocephalic/atraumatic, Neck: supple, no palpable lymph nodes or masses Cardiac: normal heart sounds Pulm: normal breath sounds B/L, no added breath sounds Abd: not distended, no tenderness Extremities: no edema, no signs of myxedema Laboratory Tests 01/18/25 03/24/25 16:02 09:47 TSH 9.15 H 4.00 Free T4 1.08 1.00 Thyroglobulin <0.1 Thyroglobulin Antibody <1 Soft tissue ultrasound of the neck 03/28/25 Comparison: None Findings: Grayscale and color Doppler images of lymph nodes in the neck were obtained with a high-frequency linear transducer in a patient status post thyroidectomy due to malignancy. No lymph nodes of abnormal morphology or size. Right neck level: IA: Measuring 0.7 x 0.6 x 0.7 cm and 0.8 x 0.5 x 0.4 cm IB: Measuring 1.0 x 0.5 x 1.0 cm 0.7 x 0.4 x 0.9 cm II: Measuring 2.5 x 0.5 x 1.1 cm III: Measuring 1.2 x 0.4 x 0.5 cm IV: None V: None Left neck level: IA: None IB: Measuring 0.7 x 0.5 x 0.6 cm 0.9 x 0.6 x 0.5 cm II: None III: Measuring 2.0 x 0.9 x 0.8 cm and 0.8 x 0.3 x 0.8 cm IV: None V: Measuring 0.8 x 0.4 x 0.8 cm and 0.8 x 0.4 x 0.7 cm Impression: No suspicious lymph nodes. 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- [employer] Cognitive needs: No Hearing needs: No Vision needs: Yes (Glasses) Physical Exam Vital Signs: Last Vital Signs Pulse 86 04/09/25 10:50 BP 138/92 H 04/09/25 10:50 Pulse Ox 97 04/09/25 10:50 Oxygen Delivery Method Room Air 04/09/25 10:50 BMI result Body Mass Index 32.0 Assessment & Plan Assessment & Plan (1) History of malignant neoplasm of thyroid: Code(s): Z85.850 - Personal history of malignant neoplasm of thyroid Category: Medical Plan: 49-year-old male with a history of thyroid cancer who is coming today to establish care, status post lobectomy, unclear which side in [address] [facility] [address] Yolande Oscar and was found to have thyroid cancer. Subsequently was lost to follow up and then in 2009 underwent completion thyroidectomy at [facility] and radioactive iodine treatment, unknown dose,, and then lost to follow up again. We do not have any of these records. Unclear AJCC stage, unknown SHAMEKA initial risk of recurrence. Most recent neck ultrasound from March 2025 showed normal-appearing bilateral lymph nodes with no signs of recurrence. Most recent labs from January 2025 showed undetectable non stimulated TG levels. Currently based on undetectable thyroglobulin levels and normal ultrasound results classifies as SHAMEKA excellent response to therapy. He does not have any compressive symptoms, no palpable lymph nodes or masses on my exam today. He is on levothyroxine 175 mcg daily. After improved method of administration and better adherence, TSH most recently on labs in March 2025 noted to be at 4. Goal TSH would be somewhere around 2. While we do not have to keep him suppressed, his TSH is a little bit on the higher side and I would like to go up on the dose of levothyroxine. Plan: -increase levothyroxine to 200 mcg daily -ordered TSH, free T4 to be done in 6 weeks, we will communicate the results with him -we will plan to follow up in 1 year in April 2026 with TSH, free T4, TG and TG antibodies done prior to that appointment, we will hold off on ordering these now, we will order them depending on his labs -follow up in 1 year (2) Hypothyroidism (acquired): Code(s): E03.9 - Hypothyroidism, unspecified Category: Medical Plan: He is on levothyroxine 175 mcg daily. After improved method of administration and better adherence, TSH most recently on labs in March 2025 noted to be at 4. Goal TSH would be somewhere around 2. While we do not have to keep him suppressed, his TSH is a little bit on the higher side and I would like to go up on the dose of levothyroxine. Plan: -increase levothyroxine to 200 mcg daily -ordered TSH, free T4 to be done in 6 weeks, we will communicate the results with him Plan I spent 30 minutes in reviewing the record, seeing the patient and documenting in the medical record. Orders: Orders Free T4 (Free Thyroxine) 6 Weeks E03.9 - Hypothyroidism, unspecified, Z85.850 - Personal history of malignant neoplasm of thyroid Thyroid Stimulating Hormone 6 Weeks E03.9 - Hypothyroidism, unspecified, Z85.850 - Personal history of malignant neoplasm of thyroid Medications: New levothyroxine 200 mcg PO DAILY 30 tabs 4RF Patient Instructions: Increase levothyroxine to 200 mcg daily Do blood work in 6 weeks We will communicate the results to you Follow up in 1 year , you will at that time need repeat labs done 2 weeks prior to follow up as well Coding Level of Care Code Est Pt Level 4 (24117) Complex EM visit Add On G2211 Diagnoses History of malignant neoplasm of thyroid Z85.850 Hypothyroidism (acquired) E03.9 Time Spent (min) 30
[2025-04-09 10:50] VITALS: BP 138/92; PULSE 86; O2SAT 97; BMI 32.0
== END 2025-04-09 11:18 | disposition home or self-care (01) ==
LOC: HO.ENCR 10:48
PROVIDERS: PCP Physician Assistant; Visit Provider Student in an Organized Health Care Education/Training Program
DX: Z85.850 Personal history of malignant neoplasm of thyroid (principal); E03.9 Hypothyroidism, unspecified
CPT/HCPCS: 99214; G2211

== ENCOUNTER → 2025-04-09 10:47 | Outpatient (BNVA) | payer OTHER, SELFPAY | PROVIDERS: PCP Physician Assistant; Visit Provider Student in an Organized Health Care Education/Training Program | DX: E03.9 Hypothyroidism, unspecified (principal); Z85.850 Personal history of malignant neoplasm of thyroid | CPT/HCPCS: 99212 ==

== ENCOUNTER 2025-04-10 18:43 | Observation (INO) | payer OTHER, SELFPAY ==
--- NOTE | ~2025-04-10 | XR_ITS ---
CLINICAL HISTORY: cp 1 view chest x-ray Comparison: None Findings: The lungs are clear. Normal size heart. No acute fracture. IMPRESSION: 1. No acute findings. This document has been electronically signed by: Sen Cruz MD on 04/10/2025 19:33:28
[2025-04-10 18:50] VITALS: BP 152/102; PULSE 82; O2SAT 97
[2025-04-10 18:55] VITALS: BP 140/90; PULSE 80; RESP 16; TEMP 36.6; O2SAT 97; BMI 32.1
--- NOTE | 2025-04-10 19:04 | ECG_ITS ---
Test Reason : HYPERGLYCEMIA Blood Pressure : */* mmHG Vent. Rate : 75 BPM Atrial Rate : 75 BPM P-R Int : 140 ms QRS Dur : 94 ms QT Int : 394 ms P-R-T Axes : 36 12 35 degrees QTcB Int : 439 ms Normal sinus rhythm Normal ECG No previous ECGs available Referred By: Gris Mercado Electronically Signed By: MARY REYES MD
[2025-04-10 19:05] LABS: Glucose, Whole Blood 302 mg/dL (60-115)
--- NOTE | 2025-04-10 19:08 | ED_ITS ---
HPI - General Adult General Chief complaint: Weakness Stated complaint: Chest pressure, weakness, POC 414 Time Seen by Provider: 04/10/25 18:55 History of Present Illness HPI narrative: Patient is a 49-year-old male presents today with having chest pain. The chest pain is on the right side. Patient claims is worse with movement. Worse with exertion. Associated with diaphoresis and shortness of breath. There is no fever no chills. There is leg swelling. No history of blood clots in the past. No travel history. Patient from home. Chest pain been on an off. Has a history of diabetes, hypertension, high cholesterol. Does not smoke never had a heart attack. No travel history no leg pain Related Data Home Medications ?Medication ?Instructions ?Recorded ?Confirmed metoprolol succinate 50 mg 25 mg PO DAILY 01/18/25 04/09/25 tablet,extended release 24 hr Previous Rx's ?Medication ?Instructions ?Recorded allopurinol 100 mg tablet 100 mg PO DAILY #90 tabs 04/04/25 gemfibrozil 600 mg tablet 600 mg PO DAILY 90 days #90 tabs 04/04/25 losartan 25 mg tablet 25 mg PO DAILY 30 days #30 tabs 04/04/25 metformin 1,000 mg tablet 1,000 mg PO DAILY 90 days #90 tabs 04/04/25 semaglutide 1 mg/dose (4 mg/3 mL) 1 mg (0.75 mL) subcut QWEEK 4 04/04/25 subcutaneous pen injector (Ozempic) weeks #3 mL levothyroxine 200 mcg tablet 200 mcg PO DAILY #30 tabs 04/09/25 Allergies Allergy/AdvReac Type Severity Reaction Status Date / Time lisinopril AdvReac Intermediate Dizziness Uncoded 04/10/25 18:57 Review of Systems 2 Review of Systems: Positive chest pain Yes all other systems are reviewed and are negative PMFSH Past Medical History Attestation statement: The following information was validated with the patient. Surgical History History of thyroid surgery History of cholecystectomy Social History Social History Housing: House Alcohol intake: current Alcohol intake frequency: 0-2 drinks per day Alcohol type: hard liquor Patient Tobacco Use Status: Never used Tobacco Smoked in Last 30 Days: No e-Cigarette/Vaping Use: Never Used Second Hand Smoke Exposure: No Use of substances other than those prescribed or required for medical reasons: No Substance Use Type: Marijuana Advance Directives: No Advance Directives Information Provided: No Do you have a plan to hurt others: No Plan service: No Current occupational status: employed 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 Oriented X3. No acute distress. Eyes: Pupils equal, round and reactive to light. ENT: Pharynx normal. Neck: Normal inspection. Neck supple. No lymph nodes noted. No crepitus CVS: Normal heart rate and rhythm. Pulses normal. Normal S1 and S2 Respiratory: No respiratory distress. Breath sounds normal. No Wheezing. No rales Abdomen: Soft and nontender. No rigidity. No distention. good BS x4 Skin: Skin warm and dry. Normal skin color. Normal skin turgor. Extremities: No lower extremity edema. Neurovascular intact to all extremities. No Lacerations. No Rash Neuro: Oriented X 3. No motor deficit. No sensory deficit. Moving all extermities. No slurred speech Medications Administered Discontinued Medications Generic Name Dose Route Start Last Admin Trade Name Freq PRN Reason Stop Dose Admin Sodium Chloride 1,000 mls @ 999 mls/hr 04/10/25 19:15 04/10/25 20:48 Ns IV 04/10/25 20:15 Infused .Q1H1M JACINTO Infusion Medical Decision Making Medical Decision Making MDM Narrative: Patient is 49 years old presents today with having chest pain with working. Not with walking upstairs. Patient has a history of diabetes, hypertension, high cholesterol. His troponin came back negative. My interpretation of his EKG showed a sinus rhythm heart rate is 75 CO QRS QTC normal there is no acute ST segment elevation. My interpretation patient's chest x-ray was grossly negative. Patient has had a negative D-dimer. Risk for PE is low. Unlikely pulmonary emboli. Sugar came down nicely to 240. Case discussed with cardiology feel comfortable with plan of observation patient's ABG showed no evidence of diabetic ketoacidosis. Patient's troponin is negative at 3.4. Case consulted by the hospitalist team. Will admit for further evaluation Differential Diagnosis Differential Diagnoses: The differential diagnosis associated with the presentation includes Angina, ACS, PE, pneumonia, pneumothorax Admission/Observation Consideration of admission/observation: Escalation of care including admission/observation considered Consult Healthcare Provider Management of the patient was discussed with: Hospitalist and Senior Quality Methods Specialist (Cardiology) Lab Data MDM Lab Attestation statement: I reviewed the patient's lab results. 04/10/25 19:30 Labs: Lab Results 04/10/25 04/10/25 04/10/25 Range/Units 19:01 19:30 19:35 WBC 8.1 (4.8-10.8) X10*3/uL RBC 5.10 (4.60-5.80) X10*6/uL Hgb 14.9 (14.0-18.0) g/dl Hct 44.7 (42.0-52.0) % MCV 87.6 (80.0-98.0) fL MCH 29.2 (27.0-33.0) pg MCHC 33.3 (31.0-36.0) g/dl RDW 12.6 (11.0-16.0) % Plt Count 214 (160-400) X10*3/uL MPV 10.3 (9.4-12.4) fL Immature Gran % (Auto) 1.0 H (0.0-0.4) % Neut % (Auto) 70.4 (45-73) % Lymph % (Auto) 19.7 L (20-40) % [place] % (Auto) 6.7 (2-11) % Eos % (Auto) 1.6 (0-4) % Baso % (Auto) 0.6 (0-2) % Lymph # (Auto) 1.6 (1.2-4.9) X10*3/uL [place] # (Auto) 0.5 (0.1-1.2) X10*3/uL Eos # (Auto) 0.1 (0.0-0.4) X10*3/uL Baso # (Auto) 0.1 (0.0-0.2) X10*3/uL Abs Immat Gran (auto) 0.08 H (0.00-0.03) X10*3/uL Absolute Neuts (auto) 5.7 (2.0-8.3) x10*3/uL Absolute Nucleated RBC 0.000 (0.0-0.012) X10*3/uL Nucleated RBC % (auto) 0.0 (0.0-0.2) /100WBC D-Dimer High Sensitivty < 150 NG/ML VBG pH 7.31 L (7.32-7.43) VBG pCO2 48 mmHg VBG pO2 36 mmHg VBG HCO3 25 (22-26) mmol/L VBG O2 Saturation 40.0 % VBG Base Excess -1.7 mmol/L POC Glucose 302 H (60-115) mg/dL Total Bilirubin 1.0 (0.0-1.0) mg/dL Direct Bilirubin 0.3 (0.0-0.5) mg/dL AST 29 (5-37) U/L ALT 43 H (0-40) U/L Alkaline Phosphatase 71 (39-117) U/L Troponin I High Sens 3.4 (<3.5-35.0) ng/L Total Protein 7.8 (6.5-8.0) g/dL Albumin 4.7 (3.5-5.0) g/dL 04/10/25 Range/Units 20:53 WBC (4.8-10.8) X10*3/uL RBC (4.60-5.80) X10*6/uL Hgb (14.0-18.0) g/dl Hct (42.0-52.0) % MCV (80.0-98.0) fL MCH (27.0-33.0) pg MCHC (31.0-36.0) g/dl RDW (11.0-16.0) % Plt Count (160-400) X10*3/uL MPV (9.4-12.4) fL Immature Gran % (Auto) (0.0-0.4) % Neut % (Auto) (45-73) % Lymph % (Auto) (20-40) % [place] % (Auto) (2-11) % Eos % (Auto) (0-4) % Baso % (Auto) (0-2) % Lymph # (Auto) (1.2-4.9) X10*3/uL [place] # (Auto) (0.1-1.2) X10*3/uL Eos # (Auto) (0.0-0.4) X10*3/uL Baso # (Auto) (0.0-0.2) X10*3/uL Abs Immat Gran (auto) (0.00-0.03) X10*3/uL Absolute Neuts (auto) (2.0-8.3) x10*3/uL Absolute Nucleated RBC (0.0-0.012) X10*3/uL Nucleated RBC % (auto) (0.0-0.2) /100WBC D-Dimer High Sensitivty NG/ML VBG pH (7.32-7.43) VBG pCO2 mmHg VBG pO2 mmHg VBG HCO3 (22-26) mmol/L VBG O2 Saturation % VBG Base Excess mmol/L POC Glucose 240 H (60-115) mg/dL Total Bilirubin (0.0-1.0) mg/dL Direct Bilirubin (0.0-0.5) mg/dL AST (5-37) U/L ALT (0-40) U/L Alkaline Phosphatase (39-117) U/L Troponin I High Sens (<3.5-35.0) ng/L Total Protein (6.5-8.0) g/dL Albumin (3.5-5.0) g/dL Independent Interpretation I performed an independent interpretation of an: EKG (Sinus heart rate is 70 CO QRS QTC normal no acute ST segment elevation) and Plain X-Ray (Chest x-ray negative) Radiology Impression Discussion of test interpretation with radiology: I have reviewed the radiologist's reading. Chronic Conditions Patient?s care impacted by: Diabetes and Hypertension High cholesterol Social Determinants Patient?s care significantly limited by Social Determinants of Health including: Problems related to primary support group Discharge Plan Discharge Clinical Impression: Angina of effort Patient Disposition: Admitted As Inpatient Prescriptions: No Action metformin 1,000 mg tablet 1,000 mg PO DAILY 90 Days Qty: 90 1RF losartan 25 mg tablet 25 mg PO DAILY 30 Days Qty: 30 1RF Ozempic 1 mg/dose (4 mg/3 mL) pen injector 1 mg subcut QWEEK 28 Days Qty: 3 3RF allopurinol 100 mg tablet 100 mg PO DAILY Qty: 90 1RF gemfibrozil 600 mg tablet 600 mg PO DAILY 90 Days Qty: 90 1RF levothyroxine 200 mcg tablet 200 mcg PO DAILY Qty: 30 4RF metoprolol succinate 50 mg tablet extended release 24 hr 25 mg PO DAILY Print Language: Uzbek
[2025-04-10] MEDS: 0.9 % Sodium Chloride 1,000 ML 999 ML IV (19:34)
[2025-04-10 19:35] LABS: MANUAL DIFF FLAG NO
[2025-04-10 19:39] LABS: VBG Base Excess -1.7 mmol/L; VBG HCO3 25 mmol/L (22-26); VBG pCO2 48 mmHg; VBG pH 7.31 (7.32-7.43); VBG pO2 36 mmHg
[2025-04-10 19:45] LABS: Basophils Absolute Auto 0.1 X10*3/uL (0.0-0.2); Basophils Percent Auto 0.6 % (0-2); Eosinophils Absolute Auto 0.1 X10*3/uL (0.0-0.4); Eosinophils Percent Auto 1.6 % (0-4); Hematocrit 44.7 % (42.0-52.0); Hemoglobin 14.9 g/dl (14.0-18.0); Imm Gran Abs Auto 0.08 X10*3/uL (0.00-0.03); Lymphocytes Absolute Auto 1.6 X10*3/uL (1.2-4.9); Lymphocytes Percent Auto 19.7 % (20-40); Mean Corpuscular HGB Conc 33.3 g/dl (31.0-36.0); Mean Corpuscular Hemoglobin 29.2 pg (27.0-33.0); Mean Corpuscular Volume 87.6 fL (80.0-98.0); Mean Platelet Volume 10.3 fL (9.4-12.4); Monocytes Absolute Auto 0.5 X10*3/uL (0.1-1.2); Monocytes Percent Auto 6.7 % (2-11); Neutrophils Absolute Auto 5.7 x10*3/uL (2.0-8.3); Neutrophils Percent Auto 70.4 % (45-73); Platelet Count 214 X10*3/uL (160-400); Red Cell Distribution Width 12.6 % (11.0-16.0); White Blood Count 8.1 X10*3/uL (4.8-10.8)
[2025-04-10 19:49] LABS: Alanine Aminotransferase 43 U/L (0-40); Albumin Level 4.7 g/dL (3.5-5.0); Alkaline Phosphatase 71 U/L (39-117); Aspartate Amino Transferase 29 U/L (5-37); Bilirubin Direct 0.3 mg/dL (0.0-0.5); Total Protein 7.8 g/dL (6.5-8.0)
[2025-04-10 19:49] LABS: Venous Blood Gas Refer to POC result
[2025-04-10 19:56] LABS: Troponin-I High Sensitivity 3.4 ng/L (<3.5-35.0)
[2025-04-10 20:09] LABS: D Dimer High Sensitivity < 150 NG/ML
[2025-04-10 20:30] VITALS: BP 147/94; PULSE 77; RESP 16; O2SAT 98
[2025-04-10 20:57] LABS: Glucose, Whole Blood 240 mg/dL (60-115)
[2025-04-10 21:17] LABS: Appearance Urine Clear; Color Urine Yellow; Glucose Urine UA 500 mg/dL (Negative); Leukocyte Esterase Urine Negative (Negative); Nitrite Urine Negative (Negative); Urine Blood Negative (Negative); Urine Ketones Negative (Negative); Urine Protein Negative (Neg-Trace)
[2025-04-10 21:38] LABS: Bacteria Urine None Seen (None Seen); Calcium Oxalate Crystals Urine Present; Hyaline Casts Urine >20 /LPF (0-2); RBC Urine 0-2 /HPF (0-2); WBC Urine 0-5 /HPF (0-5)
--- NOTE | 2025-04-10 21:53 | PHA.MEDREC ---
Addendum entered by Vijay Grossman [facility] 04/10/25 21:59: MED REC REVIEWED Original Note: Pharmacy Consult ? Medication Reconciliation Pharmacy has completed the medication reconciliation. Spoke to patient to confirm med list. Patient states he no longer takes Hydroxyzine HCl 25 mg, Metoprolol succ 50 mg and Prednisone taper. Patient confirm Ozempic 1 mg every Wednesday, last dose 04/01/25.
[2025-04-10 22:10] VITALS: BP 144/98; PULSE 99; RESP 16; O2SAT 99
--- NOTE | 2025-04-10 22:10 | PM.IMHP ---
History of Present Illness Date of Service: 04/10/25 Attending physician on admission: Chico Berrios Chief Complaint: chest pain, hyperglycemia Patient is a 49-year-old male with past medical history of fsr-qsjossj-[id number] diabetes currently on Ozempic since November of 2024 with recent increase in dose from 0.5-1 mg weekly - A1c currently 9.8, hypertension, hyperlipidemia, hypertriglyceridemia, thyroid cancer with full thyroidectomy on levothyroxine, gout, obesity with 10 lb weight loss since November of 2024 being on ozempic, peripheral diabetic neuropathy was seen in the emergency department after being brought in by ambulance from an urgent care facility for generalized weakness upon arriving at work with a feeling that patient was going to pass out. Patient also reported a mild headache. Prior to EMS being called, patient ate some candy thinking his blood sugar was low. Blood sugar via point of care via EMS was 414. Patient was also complaining of chest pain at the time of EMS arrival. Patient denied having chest pain upon evaluation in the emergency department. Patient further clarifies that on Wednesday04/06/2025, patient was started on losartan 25 mg daily and had previously been on lisinopril up until 2 months prior. Patient has stopped lisinopril due to symptoms described as orthostatic hypotension and patient complained of dizziness upon standing and stopped the medication on his own but did notify his primary care physician. Patient states the symptoms he experienced today were similar to those that he had while on lisinopril but were worse. Patient was also told by his pellet preparation operator who manages his thyroid issues secondary to a full thyroidectomy due to cancer to increase his levothyroxine from 0.175 2.2 mcg on Wednesday04/06/2025. Patient states his TSH was running for and the goal was to have his TSH level be 2.0. In addition, as patient's primary care physician manages his diabetes, he was told to go up on his Ozempic from 0.5-1.0 mg weekly on Wednesday04/06/2025. Patient's A1c has been running 9.8. Patient was started on Ozempic in November of 2024 as patient stated to his primary care physician that he did not want to start insulin and wanted to avoid using insulin for as long as possible. Patient has had no long-term GI side effects including constipation, nausea or vomiting since starting Ozempic. Patient does not have a current continuous glucose monitor as his insurance will not improve this because he is not on insulin. Patient does not routinely check his blood sugars at home. Cardiac workup notes negative troponins and EKG normal sinus rhythm with no evidence of ischemia. QTC 439. UA negative for proteinuria and ketones, positive for 500 mg mg/dL of glucose. No evidence of urinary tract infection. Incidentally, results from CMP were not complete. BMP requested and patient found to be in THERON. Treatment initiated and nephrology consulted. Currently patient states the chest pain is resolved and patient denies any nausea or vomiting at this time. Patient denies any recent uric acid flares as he has been on allopurinol. LFTs are within normal limits. Patient did not have fever or leukocytosis. Review of Systems Review of Systems: Patient currently denies any chest pain, nausea or vomiting. Patient is not having any abdominal pain. Patient reports headache is improved. Patient is looking forward to sleeping overnight. Yes all other systems are reviewed and are negative [facility] Medical History (Updated 04/11/25 @ 00:07 by KILEY Sheikh) Marijuana use Alcohol use Pancreatitis DMII (diabetes mellitus, type 2) HTN (hypertension) Hypothyroidism (acquired) History of malignant neoplasm of thyroid HLD (hyperlipidemia) Gout Class 1 obesity Cognitive capacity: Alert and orientated x3 Functional capacity: independent ambulation Surgical History History of thyroid surgery History of cholecystectomy Social History (Updated 04/11/25 @ 00:08 by KILEY Sheikh) Housing: House Alcohol intake: current Alcohol intake frequency: 0-2 drinks per day Alcohol type: hard liquor Comment: Patient drinks beer on the weekends usually a 6 pack or more Patient Tobacco Use Status: Never used Tobacco Smoked in Last 30 Days: No e-Cigarette/Vaping Use: Never Used Second Hand Smoke Exposure: No Use of substances other than those prescribed or required for medical reasons: No Substance Use Type: Marijuana Advance Directives: No Advance Directives Information Provided: No Do you have a plan to hurt others: No Plan Nutrition Risks: No Nutritional Risk service: No Current occupational status: employed 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- [employer] Cognitive needs: No Hearing needs: No Vision needs: Yes (Glasses) Ebola Risk: Travel/Contact With Anyone From Affected Area/s: No Has Patient Experienced Ebola Symptoms: No Meds Allergies Allergy/AdvReac Type Severity Reaction Status Date / Time lisinopril AdvReac Intermediate Dizziness Uncoded 04/10/25 18:57 Home Medications ?Medication ?Instructions ?Recorded ?Confirmed ?Last Taken ?Type glipizide 10 mg tablet 10 mg PO DAILY 04/10/25 04/10/25 04/09/25 History levothyroxine 200 mcg tablet 200 mcg PO DAILY@0600 04/10/25 04/10/25 04/10/25 History semaglutide 1 mg/dose (4 mg/3 mL) 1 mg subcut CHOUDHARY 04/10/25 04/10/25 Unknown History subcutaneous pen injector (Ozempic) Physical Exam Vital Signs and Narrative: Vital Signs: Last Vital Signs Temp 97.8 F 04/10/25 18:55 Pulse 77 04/10/25 20:30 Resp 16 04/10/25 20:30 BP 147/94 H 04/10/25 20:30 Pulse Ox 98 04/10/25 20:30 O2 Del Method Room Air 04/10/25 20:30 BMI result Body Mass Index 32.1 Alert and orientated X3, able to give good history. Neuro: CN II-X11 intact, no deficits, visual acuity intact EYES: PERRLA, EOM intact, sclerae nonicteric, conjunctiva pink ENT: hearing intact, no issues with swallowing, uvula midline, lips moist, nares patent no epistaxis Cardiac: S1 S2 RRR, no murmur, no JVD, no edema in Lower ext Pulmonary: lungs clear to auscultation B Abdominal: BS active in all 4 quadrants, no guarding, tenderness, rebounding, obesity MSK: strength 5/5 upper and lower extremities : no CVA tenderness no bladder distension Extremities: no edema in lower extremities, PT and DP pulses palpable +2 Psych: mood stable, judgement and insight good Skin: Intact, tattoos present on back Results Labs 04/10/25 19:30 04/10/25 19:30 Labs: Laboratory Results - last 24 hr 04/10/25 04/10/25 04/10/25 19:01 19:30 19:35 MCV 87.6 MCH 29.2 MCHC 33.3 RDW 12.6 Plt Count 214 MPV 10.3 Immature Gran % (Auto) 1.0 H Neut % (Auto) 70.4 Lymph % (Auto) 19.7 L [place] % (Auto) 6.7 Eos % (Auto) 1.6 Baso % (Auto) 0.6 Lymph # (Auto) 1.6 [place] # (Auto) 0.5 Eos # (Auto) 0.1 Baso # (Auto) 0.1 Abs Immat Gran (auto) 0.08 H Absolute Neuts (auto) 5.7 Absolute Nucleated RBC 0.000 Nucleated RBC % (auto) 0.0 D-Dimer High Sensitivty < 150 VBG pH 7.31 L VBG pCO2 48 VBG pO2 36 VBG HCO3 25 VBG O2 Saturation 40.0 VBG Base Excess -1.7 POC Glucose 302 H Total Bilirubin 1.0 Direct Bilirubin 0.3 AST 29 ALT 43 H Alkaline Phosphatase 71 Troponin I High Sens 3.4 Total Protein 7.8 Albumin 4.7 Urine Color Urine Appearance Urine pH Ur Specific [place] Urine Protein Urine Glucose (UA) Urine Ketones Urine Blood Urine Nitrite Ur Leukocyte Esterase Urine RBC Urine WBC Ur Squamous Epith Cells Calcium Oxalate Crystal Urine Bacteria Hyaline Casts 04/10/25 04/10/25 20:32 20:53 MCV MCH MCHC RDW Plt Count MPV Immature Gran % (Auto) Neut % (Auto) Lymph % (Auto) [place] % (Auto) Eos % (Auto) Baso % (Auto) Lymph # (Auto) [place] # (Auto) Eos # (Auto) Baso # (Auto) Abs Immat Gran (auto) Absolute Neuts (auto) Absolute Nucleated RBC Nucleated RBC % (auto) D-Dimer High Sensitivty VBG pH VBG pCO2 VBG pO2 VBG HCO3 VBG O2 Saturation VBG Base Excess POC Glucose 240 H Total Bilirubin Direct Bilirubin AST ALT Alkaline Phosphatase Troponin I High Sens Total Protein Albumin Urine Color Yellow Urine Appearance Clear Urine pH 5.0 Ur Specific [place] 1.010 Urine Protein Negative Urine Glucose (UA) 500 H Urine Ketones Negative Urine Blood Negative Urine Nitrite Negative Ur Leukocyte Esterase Negative Urine RBC 0-2 Urine WBC 0-5 Ur Squamous Epith Cells 3-5 Calcium Oxalate Crystal Present Urine Bacteria None Seen Hyaline Casts >20 ECG Attestation: I personally reviewed and interpreted this ECG as follows: (Normal sinus rhythm with no ischemic changes) Prior ECG tracings: available for review Imaging Radiologist's Impressions: Chest x-ray Findings: The lungs are clear. Normal size heart. No acute fracture. IMPRESSION: 1. No acute findings. Assessment and Plan (1) Chest pain: Qualifiers: Chest pain type: other chest pain Qualified Code(s): R07.89 - Other chest pain Status: Acute Plan Patient is a 49-year-old male with past medical history of xio-llpwvtt-jzxuuqfcw diabetes currently on Ozempic since November of 2024 with recent increase in dose from 0.5-1 mg weekly - A1c currently 9.8, hypertension, hyperlipidemia, hypertriglyceridemia, thyroid cancer with full thyroidectomy on levothyroxine, gout, obesity with 10 lb weight loss since November of 2024 being on ozempic, peripheral diabetic neuropathy is being admitted under observation for report of chest pain, THERON and noted hyperglycemia. Chest pain -Continue telemetry -Cardiology consulted (see hypertension) -Repeat troponin in the a.m. -Echo ordered for baseline testing -BNP in the a.m. -Orthostatics in the a.m. THERON/ hyponatremia -Creatinine 2.32, GFR 30, maybe due to dehydration -Nephrology consulted -Avoid hypotension -IV fluids initiated -Sodium 132 -Urine studies for sodium, creatinine and osmolarity requested -Avoid nephrotoxic medications including NSAIDs, holding metformin, glipizide and Arb -BMP in the a.m. Hypertension -Patient recently started losartan on Wednesday04/06/2025. Patient had abnormal symptoms while on lisinopril and this was stopped by patient 2 months prior. PCP was aware. Today's symptoms similar to those experienced while on lisinopril but worse overall. -Cardiology consulted -Patient received 1 dose of amlodipine this evening due to hypertension Low-salt diet Hyperglycemia with known diabetes type 2 -Patient currently on metformin, glipizide and Ozempic -Patient's Ozempic was increased from 0.5 mg to 1 mg weekly this past 04/06/2025. -Patient denies any GI symptoms including nausea, vomiting or constipation. Patient reports 10 lb weight loss since November of 2024 when patient has started Ozempic. -A1c March 2025 9.8. -Patient has been trying to avoid insulin and education provided on the benefits of insulin and uncontrolled diabetes versus using Ozempic only -Patient's diabetes is currently managed by his PCP. Recommend patient asked for referral to endocrinology for diabetes evaluation. -Lantus 10 units subQ x1 -Sliding scale insulin -Diabetic diet -registered nurses requested Hyperlipidemia -Lipid panel ordered for a.m. -Patient may benefit from statin, can review with PCP in the outpatient setting -patient on gemfibrozil Hypothyroidism status post full thyroidectomy for thyroid cancer -Patient does follow with an pellet preparation operator and levothyroxine was increased from 0.175 2.2 mcg this past Wednesday04/06/2025 -We will check TSH in the a.m. DVT prophylaxis: Heparin subQ PPI prophylaxis: Protonix/ omeprazole Med rec completed Full code status Quality Stroke Does the patient have a stroke diagnosis?: No Reason for No Anti-thrombotic by Day Two: N/A - Med Ordered VTE Prior VTE?: No VTE Risk Level:: Medical - moderate - high VTE Device Contraindication: N/A - Device Ordered VTE Drug Contraindication: N/A - Med Ordered
[2025-04-10] MEDS: Enoxaparin Sodium 40 MG/0.4 ML SYRINGE SUBCUT (23:01)
[2025-04-10 23:49] VITALS: BP 147/95; PULSE 80; RESP 18; O2SAT 96
[2025-04-10] MEDS: Melatonin 3 MG TABLET 9 MG PO (23:49)
[2025-04-10] MEDS: Pantoprazole Sodium 40 MG/10 ML VIAL IVPUSH (23:49)
--- NOTE | 2025-04-10 23:55 | PC.NURSE ---
assumed care of patient at 23:15. report received from Samantha BELLA
[2025-04-11] VITALS (8 sets, daily range): BP systolic 113–149; BP diastolic 80–106; PULSE 77–108; RESP 14–18; TEMP 36.3–36.8; O2SAT 95–99
--- NOTE | 2025-04-11 | CA_ITS ---
Acquisition Time: 2025-04-11 10:05:38 Total Exercise Time: 00:08:29 Test Indications: CP Medications: SEE EMAR Protocol: GURVINDER Max HR: 153 BPM 89% of Pred: 171 BPM Max BP: 180/80 mmHG Max Work Load: 10.1 METS Exercise stress test with exercise 8 mins 29 sec sof Gurvinder Protocol, achieving 89% MPHR, with reports of moderate SOB and dizziness, no chest pain, without any arrythmias, with normotensive response to exercise. Without EKG changes meeting criteria for ischemia. In recovery, breathing returned to baseline and dizziness improved. Test reviewed with Dr. Renee. Referred By: Judson Renee Electronically Signed By: Rodney Soto
[2025-04-11 00:11] LABS: Anion Gap 16 (12-20); Blood Urea Nitrogen 36 mg/dL (9-16); Calcium 9.3 mg/dL (8.4-10.2); Carbon Dioxide 22 mmol/L (22-29); Chloride 99 mmol/L (96-108); Creatinine Clr Calc Pharmacy 51.5; Estimated Glomerular Filt Rate 30; Glucose Random 277 mg/dL (60-115); Potassium 4.7 mmol/L (3.3-5.1); Sodium 132 mmol/L (135-145)
[2025-04-11] MEDS: amLODIPine Besylate 5 MG TABLET PO (00:25)
[2025-04-11] MEDS: Insulin Glargine,Hum.rec.anlog 100 UNIT/ML 10 ML VIAL 10 UNIT SUBCUT (00:25)
[2025-04-11] MEDS: 0.9 % Sodium Chloride 1,000 ML 125 ML IVCONT ×2 (00:27→08:20)
--- NOTE | 2025-04-11 05:12 | PC.NURSE ---
pt ambulates to and from bathroom with a steady gait. back in bed, no apparent distress noted. denies any acute pain or distress. NS running at 125ml/hr. pt on human services manager. plan of care continues
[2025-04-11 05:25] LABS: MANUAL DIFF FLAG NO
[2025-04-11 05:32] LABS: Basophils Percent Auto 0.5 % (0-2); Eosinophils Absolute Auto 0.1 X10*3/uL (0.0-0.4); Hematocrit 38.1 % (42.0-52.0); Hemoglobin 12.9 g/dl (14.0-18.0); Imm Gran Abs Auto 0.06 X10*3/uL (0.00-0.03); Lymphocytes Absolute Auto 1.9 X10*3/uL (1.2-4.9); Lymphocytes Percent Auto 30.9 % (20-40); Mean Corpuscular HGB Conc 33.9 g/dl (31.0-36.0); Mean Corpuscular Hemoglobin 29.3 pg (27.0-33.0); Mean Corpuscular Volume 86.4 fL (80.0-98.0); Mean Platelet Volume 10.3 fL (9.4-12.4); Monocytes Absolute Auto 0.6 X10*3/uL (0.1-1.2); Monocytes Percent Auto 9.2 % (2-11); Neutrophils Absolute Auto 3.5 x10*3/uL (2.0-8.3); Neutrophils Percent Auto 56.4 % (45-73); Platelet Count 192 X10*3/uL (160-400); Red Blood Count 4.41 X10*6/uL (4.60-5.80); Red Cell Distribution Width 12.5 % (11.0-16.0); White Blood Count 6.1 X10*3/uL (4.8-10.8)
[2025-04-11 05:55] LABS: Alanine Aminotransferase 30 U/L (0-40); Albumin Level 3.9 g/dL (3.5-5.0); Alkaline Phosphatase 58 U/L (39-117); Anion Gap 12 (12-20); Aspartate Amino Transferase 26 U/L (5-37); B Type Natriuretic Peptide < 10 pg/mL (<100); Blood Urea Nitrogen 33 mg/dL (9-16); Calcium 8.6 mg/dL (8.4-10.2); Carbon Dioxide 20 mmol/L (22-29); Chloride 107 mmol/L (96-108); Cholesterol 183 mg/dL (<200); Creatinine Clr Calc Pharmacy 75.7; Estimated Glomerular Filt Rate 47; Glucose Random 171 mg/dL (60-115); HDL Cholesterol 25 mg/dL (>40); LDL Cholesterol Calculated 91 mg/dL (<100); Potassium 4.4 mmol/L (3.3-5.1); Sodium 135 mmol/L (135-145); Total Protein 6.1 g/dL (6.5-8.0); Triglycerides 337 mg/dL (<150); Uric Acid 8.2 mg/dL (3.4-7.0)
[2025-04-11 05:58] LABS: Troponin-I High Sensitivity 2.7 ng/L (<3.5-35.0)
--- NOTE | 2025-04-11 06:22 | PC.NURSE ---
pharmacy contacted to bring down levothyroxine and gemfibrozil medications
[2025-04-11] MEDS: Omeprazole 20 MG CAPSULE.DR PO (07:19)
[2025-04-11] MEDS: gemfibroziL 600 MG TABLET PO (07:19)
[2025-04-11] MEDS: Levothyroxine Sodium 200 MCG TABLET PO (07:19)
[2025-04-11 07:20] LABS: Glucose, Whole Blood 185 mg/dL (60-115)
[2025-04-11] MEDS: Insulin Lispro 100 UNIT/ML 3 ML VIAL SUBCUT ×2 (07:28→11:49)
--- NOTE | 2025-04-11 07:40 | PC.NURSE ---
Pt sitting up in bed eating breakfast, medications administered as ordered.
[2025-04-11] MEDS: Heparin Sodium,Porcine 5,000 UNIT/ML VIAL 5000 UNIT SUBCUT (08:21)
[2025-04-11 08:37] LABS: Creatinine Urine 75.56 mg/dL
[2025-04-11 08:53] LABS: Osmolality Urine 521 mosm/kg (373-1093)
--- NOTE | 2025-04-11 09:40 | P.CONCA_ITS ---
History of Present Illness History of Present Illness Date of Service: 04/11/25 Requesting physician: Nika Ramos Consult reason: chest pain Chief complaint: Chest pain Narrative: I was consulted to see Doe in cardiology consultation today for chest discomfort. Patient is 49-year-old male with prior history of diabetes which is not well controlled as per him and he is now most compliant with monitoring his glucose at home, hypertension, obesity, alcohol use. Patient said he was usual state of health on Wednesday. He woke up well on Wednesday him on a event to work. When he started working which is slightly labor intensive job as per him he has started feeling dizzy had felt like he was going to pass out and then bradycardia in sweat and started getting some right-sided chest discomfort. Symptoms of chest discomfort with resolved with resting. However whenever he would work he would start getting this chest discomfort. He initially thought his sugars were low and he took a candy. Subsequently went to the urgent care where he was noted to have significantly elevated sugars and was referred to the emergency room. In the emergency room was initially EKGs normal. His serial troponins are negative. However given his history of chest discomfort with exertional work he was admitted for observation. He currently does not have any significant chest pain. Blood pressure is slightly elevated. He denies any recent exertional chest pain. Denies any recent viral syndrome. Review of Systems 2 Constitutional: Constitutional: Reports no additional constitutional complaints and Reports headache(s) Eyes: Eyes: Reports blurry vision ENT: Reports headache(s) Cardiovascular: Cardiovascular: Reports chest pain with activity, Denies syncope, Reports lightheadedness, Denies Loss of Consciousness, Denies palpitations and Denies dyspnea Respiratory: Respiratory: Reports no additional respiratory complaints and Denies dyspnea Gastrointestinal: Gastrointestinal: Reports no additional gastrointestinal complaints Neurologic: Denies syncope and Reports headache(s) Endocrine: Endocrine: Denies palpitations PMFSH Past Medical History Medical History Marijuana use Alcohol use Pancreatitis DMII (diabetes mellitus, type 2) HTN (hypertension) Hypothyroidism (acquired) History of malignant neoplasm of thyroid HLD (hyperlipidemia) Gout Class 1 obesity Surgical History Surgical History History of thyroid surgery History of cholecystectomy Social History Social History Housing: House Alcohol intake: current Alcohol intake frequency: 0-2 drinks per day Alcohol type: hard liquor Comment: Patient drinks beer on the weekends usually a 6 pack or more Patient Tobacco Use Status: Never used Tobacco Smoked in Last 30 Days: No e-Cigarette/Vaping Use: Never Used Second Hand Smoke Exposure: No Use of substances other than those prescribed or required for medical reasons: No Substance Use Type: Marijuana Advance Directives: No Advance Directives Information Provided: No Do you have a plan to hurt others: No Plan Nutrition Risks: No Nutritional Risk service: No Current occupational status: employed 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- [employer] Cognitive needs: No Hearing needs: No Vision needs: Yes (Glasses) Travel History Ebola Risk: Travel/Contact With Anyone From Affected Area/s: No Has Patient Experienced Ebola Symptoms: No Meds Allergies Allergy/AdvReac Type Severity Reaction Status Date / Time lisinopril AdvReac Intermediate Dizziness Uncoded 04/10/25 18:57 Active Medications: Current Medications Acetaminophen (Acetaminophen 325 Mg Tablet) 650 mg PO Q6H PRN PRN Reason: Pain, Mild 1-3,fever,headache Albuterol/Ipratropium (Albuterol/Iprat 2.5/0.5mg 3 Ml Ampul.Neb) 3 ml INHALE Q4H PRN PRN Reason: Shortness of Breath/Wheezing Calcium Carbonate (Calcium Carbonate 750 Mg Tab.Chew) 750 mg PO Q4H PRN PRN Reason: Heartburn Dextrose (Dextrose 50 % 25 Gm/50 Ml Syringe) 25 gm IVPUSH Q15M PRN; Protocol PRN Reason: per Hypoglycemia Standing Ord. Gemfibrozil (Gemfibrozil 600 Mg Tablet) 600 mg PO DAILY@0630 [facility] Last Admin: 04/11/25 07:19 Dose: 600 mg Glucose (Glucose Gel 15 Gm Gel..Gram.) 15 gm PO Q15M PRN; Protocol PRN Reason: per Hypoglycemia Standing Ord. Heparin Sodium (Porcine) (Heparin Sodium,Porcine 5,000 Unit/Ml Vial) 5,000 unit SUBCUT Q12H [facility] Last Admin: 04/11/25 08:21 Dose: 5,000 unit Sodium Chloride (Ns) 1,000 mls @ 125 mls/hr IVCONT .Q8H [facility] Last Admin: 04/11/25 08:20 Dose: 125 mls/hr Insulin Human Lispro (Insulin Lispro 100 Unit/Ml 3 Ml Vial) 0 unit SUBCUT QIDACHS [facility]; Protocol Last Admin: 04/11/25 07:28 Dose: 2 unit Levothyroxine Sodium (Levothyroxine Sodium 200 Mcg Tablet) 200 mcg PO DAILY@0600 [facility] Last Admin: 04/11/25 07:19 Dose: 200 mcg Magnesium Hydroxide (Milk Of Magnesia 30 Ml Oral.Susp) 30 ml PO DAILY PRN PRN Reason: Constipation Omeprazole (Omeprazole 20 Mg Capsule.Dr) 20 mg PO DAILY@0630 [facility] Last Admin: 04/11/25 07:19 Dose: 20 mg Ondansetron HCl (Ondansetron Hcl 4 Mg/2 Ml Vial) 4 mg IVPUSH Q8H PRN PRN Reason: Nausea and Vomiting Senna (Sennosides 8.6 Mg Tablet) 17.2 mg PO BEDTIME [facility] Sodium Chloride (0.9 % Sodium Chloride Flush 3 Ml Syringe) 3 ml IVFLUSH QSHIFT [facility] Last Admin: 04/11/25 07:25 Dose: Not Given Home Medications ?Medication ?Instructions ?Recorded ?Confirmed ?Last Taken ?Type glipizide 10 mg tablet 10 mg PO DAILY 04/10/25 04/10/25 04/09/25 History levothyroxine 200 mcg tablet 200 mcg PO DAILY@0600 04/10/25 04/10/25 04/10/25 History semaglutide 1 mg/dose (4 mg/3 mL) 1 mg subcut CHOUDHARY 04/10/25 04/10/25 Unknown History subcutaneous pen injector (Ozempic) Physical Exam 2 Vital Signs: Vital Signs: Last Vital Signs Temp 97.3 F 04/11/25 08:11 Pulse 90 04/11/25 08:11 Resp 18 04/11/25 08:11 BP 149/98 H 04/11/25 08:11 Pulse Ox 97 04/11/25 08:11 O2 Del Method Room Air 04/11/25 08:11 BMI result Body Mass Index 32.1 Const: General: cooperative, comfortable, no acute distress, alert and awake Nutritional Appearance: obese Orientation/consciousness: patient oriented x3 Limitations: no limitations HEENT: Head: Yes normocephalic and Yes atraumatic Neck: Neck: Yes trachea midline, Yes supple and Yes no JVD Resp: Effort & Inspection: normal respiratory effort Auscultation: clear to auscultation bilaterally Cardio: Jugular venous distension: no JVD Palpation: normal PMI Rate: r egular rate Rhythm: regular rhythm Heart sounds: S1 normal heart sound present, S2 normal heart sound present, no click, no gallops, no murmurs and no rubs GI: Auscultation: normal bowel sounds Skin: General skin exam: no rashes or lesions noted Neuro: General: patient oriented x3 and no focal motor deficits Extrem: General: Yes no clubbing, cyanosis or edema Psych: Appearance: grossly normal Objective Labs and Meds 04/11/25 04:45 04/11/25 04:45 Lab results: Laboratory Results - last 24 hr 04/10/25 04/10/25 04/10/25 19:01 19:30 19:35 WBC 8.1 RBC 5.10 Hgb 14.9 Hct 44.7 MCV 87.6 MCH 29.2 MCHC 33.3 RDW 12.6 Plt Count 214 MPV 10.3 Immature Gran % (Auto) 1.0 H Neut % (Auto) 70.4 Lymph % (Auto) 19.7 L [place] % (Auto) 6.7 Eos % (Auto) 1.6 Baso % (Auto) 0.6 Lymph # (Auto) 1.6 [place] # (Auto) 0.5 Eos # (Auto) 0.1 Baso # (Auto) 0.1 Abs Immat Gran (auto) 0.08 H Absolute Neuts (auto) 5.7 Absolute Nucleated RBC 0.000 Nucleated RBC % (auto) 0.0 D-Dimer High Sensitivty < 150 VBG pH 7.31 L VBG pCO2 48 VBG pO2 36 VBG HCO3 25 VBG O2 Saturation 40.0 VBG Base Excess -1.7 Sodium 132 L Potassium 4.7 Chloride 99 Carbon Dioxide 22 Anion Gap 16 BUN 36 H Creatinine 2.32 H Estim Creat Clear Calc 51.5 Estimated GFR 30 POC Glucose 302 H Random Glucose 277 H Uric Acid Calcium 9.3 Total Bilirubin 1.0 Direct Bilirubin 0.3 AST 29 ALT 43 H Alkaline Phosphatase 71 Troponin I High Sens 3.4 B-Natriuretic Peptide Total Protein 7.8 Albumin 4.7 Triglycerides Cholesterol LDL Cholesterol, Calc HDL Cholesterol Urine Color Urine Appearance Urine pH Ur Specific [place] Urine Protein Urine Glucose (UA) Urine Ketones Urine Blood Urine Nitrite Ur Leukocyte Esterase Urine RBC Urine WBC Ur Squamous Epith Cells Calcium Oxalate Crystal Urine Bacteria Hyaline Casts Urine Osmolality Ur Random Sodium Urine Creatinine 04/10/25 04/10/25 04/11/25 20:32 20:53 04:45 WBC 6.1 RBC 4.41 L Hgb 12.9 L Hct 38.1 L MCV 86.4 MCH 29.3 MCHC 33.9 RDW 12.5 Plt Count 192 MPV 10.3 Immature Gran % (Auto) 1.0 H Neut % (Auto) 56.4 Lymph % (Auto) 30.9 [place] % (Auto) 9.2 Eos % (Auto) 2.0 Baso % (Auto) 0.5 Lymph # (Auto) 1.9 [place] # (Auto) 0.6 Eos # (Auto) 0.1 Baso # (Auto) 0.0 Abs Immat Gran (auto) 0.06 H Absolute Neuts (auto) 3.5 Absolute Nucleated RBC 0.000 Nucleated RBC % (auto) 0.0 D-Dimer High Sensitivty VBG pH VBG pCO2 VBG pO2 VBG HCO3 VBG O2 Saturation VBG Base Excess Sodium 135 Potassium 4.4 Chloride 107 Carbon Dioxide 20 L Anion Gap 12 BUN 33 H Creatinine 1.58 H Estim Creat Clear Calc 75.7 Estimated GFR 47 POC Glucose 240 H Random Glucose 171 H Uric Acid 8.2 H Calcium 8.6 D Total Bilirubin 1.0 Direct Bilirubin AST 26 ALT 30 Alkaline Phosphatase 58 Troponin I High Sens 2.7 B-Natriuretic Peptide < 10 Total Protein 6.1 L Albumin 3.9 Triglycerides 337 H Cholesterol 183 LDL Cholesterol, Calc 91 HDL Cholesterol 25 L Urine Color Yellow Urine Appearance Clear Urine pH 5.0 Ur Specific [place] 1.010 Urine Protein Negative Urine Glucose (UA) 500 H Urine Ketones Negative Urine Blood Negative Urine Nitrite Negative Ur Leukocyte Esterase Negative Urine RBC 0-2 Urine WBC 0-5 Ur Squamous Epith Cells 3-5 Calcium Oxalate Crystal Present Urine Bacteria None Seen Hyaline Casts >20 Urine Osmolality Ur Random Sodium Urine Creatinine 04/11/25 04/11/25 07:15 08:14 WBC RBC Hgb Hct MCV MCH MCHC RDW Plt Count MPV Immature Gran % (Auto) Neut % (Auto) Lymph % (Auto) [place] % (Auto) Eos % (Auto) Baso % (Auto) Lymph # (Auto) [place] # (Auto) Eos # (Auto) Baso # (Auto) Abs Immat Gran (auto) Absolute Neuts (auto) Absolute Nucleated RBC Nucleated RBC % (auto) D-Dimer High Sensitivty VBG pH VBG pCO2 VBG pO2 VBG HCO3 VBG O2 Saturation VBG Base Excess Sodium Potassium Chloride Carbon Dioxide Anion Gap BUN Creatinine Estim Creat Clear Calc Estimated GFR POC Glucose 185 H Random Glucose Uric Acid Calcium Total Bilirubin Direct Bilirubin AST ALT Alkaline Phosphatase Troponin I High Sens B-Natriuretic Peptide Total Protein Albumin Triglycerides Cholesterol LDL Cholesterol, Calc HDL Cholesterol Urine Color Urine Appearance Urine pH Ur Specific [place] Urine Protein Urine Glucose (UA) Urine Ketones Urine Blood Urine Nitrite Ur Leukocyte Esterase Urine RBC Urine WBC Ur Squamous Epith Cells Calcium Oxalate Crystal Urine Bacteria Hyaline Casts Urine Osmolality 521 Ur Random Sodium 110.0 Urine Creatinine 75.56 Troponins x2 are normal EKG shows normal sinus rhythm normal EKG Assessment and Plan (1) Chest pain: Qualifiers: Chest pain type: other chest pain Qualified Code(s): R07.89 - Other chest pain Status: Acute Atypical chest pain this middle-aged man with multiple risk factors including uncontrolled diabetes, uncontrolled hypertension as well as hyperlipidemia. Some of the symptoms are suggestive of angina although although other symptoms are not. He has normal EKG and no other signs of biomarker elevation that is suggest high risk acute coronary syndrome. However given his symptoms would suggest him to undergo a treadmill stress test today to evaluate for myocardial ischemia. If this is negative, he can be discharged home. Discussed with him importance of aggressive control of his diabetes. He shows understanding. 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 I would also consider switching his lipid therapy to statins and fenofibrate given his high risk for atherosclerotic events. Will follow if need be. Thank you for allowing me to partake in his care Procedures Date of Service Date of Service: 04/11/25
--- NOTE | 2025-04-11 10:09 | PC.NURSE ---
Pt off the floor to stress test.
--- NOTE | 2025-04-11 11:12 | MHC.CM.PN ---
Addendum entered by Hien Marroquin 04/11/25 11:17: PCP is Justice Zelaya Original Note: Hanna 04/11/25, Pt. lives with his , he does not have home health services. PCP is Dr. Gautam at [facility] primary care. HCP form to be completed here and added to chart, naming his . to transport home at [place]. DCP: home, self care, CM to follow for [place] needs.
[2025-04-11 11:48] LABS: Glucose, Whole Blood 212 mg/dL (60-115)
--- NOTE | 2025-04-11 13:50 | P.DS_ITS ---
DS: Providers Provider Date of Service: 04/11/25 Date of admission: 04/10/25 21:09 Date of discharge: 04/11/25 Primary care physician: [facility] Consults: 04/10/25 23:25 Consult to Cardiology Routine Consulting Provider: [facility] Reason for consultation: HTN, chest pain poor response to SHELLEY now on ARB Has provider been notified: No Attending physician on discharge: Nika Ramos Discharging clinician: Nika Ramos DS: Diagnosis Discharge Diagnosis (1) Chest pain: Status: Acute DS: Summary Hospital Course Hospital Course: HPI:49-year-old male with past medical history of [id number] diabetes currently on Ozempic since November of 2024 with recent increase in dose from 0.5-1 mg weekly - A1c currently 9.8, hypertension, hyperlipidemia, hypertriglyceridemia, thyroid cancer with full thyroidectomy on levothyroxine, gout, obesity with 10 lb weight loss since November of 2024 being on ozempic, peripheral diabetic neuropathy was seen in the emergency department after being brought in by ambulance from an urgent care facility for generalized weakness upon arriving at work with a feeling that patient was going to pass out. Patient also reported a mild headache. Prior to EMS being called, patient ate some candy thinking his blood sugar was low. Blood sugar via point of care via EMS was 414. Patient was also complaining of chest pain at the time of EMS arrival. Patient denied having chest pain upon evaluation in the emergency department. Patient further clarifies that on Wednesday04/06/2025, patient was started on losartan 25 mg daily and had previously been on lisinopril up until 2 months prior. Patient has stopped lisinopril due to symptoms described as orthostatic hypotension and patient complained of dizziness upon standing and stopped the medication on his own but did notify his primary care physician. Patient states the symptoms he experienced today were similar to those that he had while on lisinopril but were worse. Patient was also told by his application support who manages his thyroid issues secondary to a full thyroidectomy due to cancer to increase his levothyroxine from 0.175 2.2 mcg on Wednesday04/06/2025. Patient states his TSH was running for and the goal was to have his TSH level be 2.0. In addition, as patient's primary care physician manages his diabetes, he was told to go up on his Ozempic from 0.5-1.0 mg weekly on Wednesday04/06/2025. Patient's A1c has been running 9.8. Patient was started on Ozempic in November of 2024 as patient stated to his primary care physician that he did not want to start insulin and wanted to avoid using insulin for as long as possible. Patient has had no long-term GI side effects including constipation, nausea or vomiting since starting Ozempic. Patient does not have a current continuous glucose monitor as his insurance will not improve this because he is not on insulin. Patient does not routinely check his blood sugars at home. Cardiac workup notes negative troponins and EKG normal sinus rhythm with no evidence of ischemia. QTC 439. UA negative for proteinuria and ketones, positive for 500 mg mg/dL of glucose. No evidence of urinary tract infection. Incidentally, results from CMP were not complete. BMP requested and patient found to be in THERON. Treatment initiated and nephrology consulted. Currently patient states the chest pain is resolved and patient denies any nausea or vomiting at this time. Patient denies any recent uric acid flares as he has been on allopurinol. LFTs are within normal limits. Patient did not have fever or leukocytosis. Hospital course: patient admitted for theron on ckd,hyponatremia , chest pain , dm with hyperglycemia: given hydration (theron, hyponatremia-seem resolved). Hold losartan-due to THERON. Monitor BMP in 1 week and reintroduced if BMP allows. Chest pain: Troponin normal, stress test also normal, consider outpatient st atin addition. Diabetes with hyperglycemia: Switched to Lantus due to hemoglobin A1c is 9.8. Also add a sliding scale, monitor fingersticks outpatient and consider further adjustment of Lantus outpatient. Currently will hold metformin/glipizide due to THERON and consider reintroduction out patiently after repeating BMP. htn : bp flactuating -added amlodipine 2.5 mg po qd : for blood pressure pers istently elevated above 140/90mmhg. plan: hold glipizide, metformin, losartan,ozempic -further use after Monitor BMP and follow up with pcp outpatient. repeat lipid panel,consider outpatient statin addition. Consider outpatient Nephrology and Endocrinology outpatient. Above management discussed with the patient detail length. Above management discussed with the patient in detail length he understand and in agreement with, time spent 40 minute. All questions answered. Staff also informed in detail. Time Attestation Total time managing care of this patient today: 40 mintues. Discharge Coordination Time (in mins): 40 min Quality: Safe Use of Opioids Does Pt have an Active Cancer Diagnosis on the Problem List?: No Quality: Stroke Does the patient have a stroke diagnosis?: No Physical Exam Vital Signs: Vital Signs: Last Vital Signs Temp 97.9 F 04/11/25 11:40 Pulse 97 04/11/25 11:40 Resp 18 04/11/25 11:40 BP 113/80 04/11/25 11:40 Pulse Ox 95 04/11/25 11:40 O2 Del Method Room Air 04/11/25 11:40 BMI result Body Mass Index 32.1 Appearance: Alert.? Oriented X3.? cvs: rrr, [id number] , no murmur res: clear to auscultation ,no rhonchii or wheezing abd: no rebound or guarding ,nt, bs present. ext pulses present , no cyanosis . neuro: axo3 , nonfocal. DS: Data Data Completed and Pending Labs on day of discharge: Laboratory Results - last 24 hr 04/10/25 04/10/25 04/10/25 19:01 19:30 19:35 WBC 8.1 RBC 5.10 Hgb 14.9 Hct 44.7 MCV 87.6 MCH 29.2 MCHC 33.3 RDW 12.6 Plt Count 214 MPV 10.3 Immature Gran % (Auto) 1.0 H Neut % (Auto) 70.4 Lymph % (Auto) 19.7 L Garrard % (Auto) 6.7 Eos % (Auto) 1.6 Baso % (Auto) 0.6 Lymph # (Auto) 1.6 Garrard # (Auto) 0.5 Eos # (Auto) 0.1 Baso # (Auto) 0.1 Abs Immat Gran (auto) 0.08 H Absolute Neuts (auto) 5.7 Absolute Nucleated RBC 0.000 Nucleated RBC % (auto) 0.0 D-Dimer High Sensitivty < 150 VBG pH 7.31 L VBG pCO2 48 VBG pO2 36 VBG HCO3 25 VBG O2 Saturation 40.0 VBG Base Excess -1.7 Sodium 132 L Potassium 4.7 Chloride 99 Carbon Dioxide 22 Anion Gap 16 BUN 36 H Creatinine 2.32 H Estim Creat Clear Calc 51.5 Estimated GFR 30 POC Glucose 302 H Random Glucose 277 H Uric Acid Calcium 9.3 Total Bilirubin 1.0 Direct Bilirubin 0.3 AST 29 ALT 43 H Alkaline Phosphatase 71 Total Creatine Kinase Troponin I High Sens 3.4 B-Natriuretic Peptide Total Protein 7.8 Albumin 4.7 Triglycerides Cholesterol LDL Cholesterol, Calc HDL Cholesterol Urine Color Urine Appearance Urine pH Ur Specific [place] Urine Protein Urine Glucose (UA) Urine Ketones Urine Blood Urine Nitrite Ur Leukocyte Esterase Urine RBC Urine WBC Ur Squamous Epith Cells Calcium Oxalate Crystal Urine Bacteria Hyaline Casts Urine Osmolality Ur Random Sodium Urine Creatinine 04/10/25 04/10/25 04/11/25 20:32 20:53 04:45 WBC 6.1 RBC 4.41 L Hgb 12.9 L Hct 38.1 L MCV 86.4 MCH 29.3 MCHC 33.9 RDW 12.5 Plt Count 192 MPV 10.3 Immature Gran % (Auto) 1.0 H Neut % (Auto) 56.4 Lymph % (Auto) 30.9 Garrard % (Auto) 9.2 Eos % (Auto) 2.0 Baso % (Auto) 0.5 Lymph # (Auto) 1.9 Garrard # (Auto) 0.6 Eos # (Auto) 0.1 Baso # (Auto) 0.0 Abs Immat Gran (auto) 0.06 H Absolute Neuts (auto) 3.5 Absolute Nucleated RBC 0.000 Nucleated RBC % (auto) 0.0 D-Dimer High Sensitivty VBG pH VBG pCO2 VBG pO2 VBG HCO3 VBG O2 Saturation VBG Base Excess Sodium 135 Potassium 4.4 Chloride 107 Carbon Dioxide 20 L Anion Gap 12 BUN 33 H Creatinine 1.58 H Estim Creat Clear Calc 75.7 Estimated GFR 47 POC Glucose 240 H Random Glucose 171 H Uric Acid 8.2 H Calcium 8.6 D Total Bilirubin 1.0 Direct Bilirubin AST 26 ALT 30 Alkaline Phosphatase 58 Total Creatine Kinase 69 Troponin I High Sens 2.7 B-Natriuretic Peptide < 10 Total Protein 6.1 L Albumin 3.9 Triglycerides 337 H Cholesterol 183 LDL Cholesterol, Calc 91 HDL Cholesterol 25 L Urine Color Yellow Urine Appearance Clear Urine pH 5.0 Ur Specific [place] 1.010 Urine Protein Negative Urine Glucose (UA) 500 H Urine Ketones Negative Urine Blood Negative Urine Nitrite Negative Ur Leukocyte Esterase Negative Urine RBC 0-2 Urine WBC 0-5 Ur Squamous Epith Cells 3-5 Calcium Oxalate Crystal Present Urine Bacteria None Seen Hyaline Casts >20 Urine Osmolality Ur Random Sodium Urine Creatinine 04/11/25 04/11/25 04/11/25 07:15 08:14 11:43 WBC RBC Hgb Hct MCV MCH MCHC RDW Plt Count MPV Immature Gran % (Auto) Neut % (Auto) Lymph % (Auto) Garrard % (Auto) Eos % (Auto) Baso % (Auto) Lymph # (Auto) Garrard # (Auto) Eos # (Auto) Baso # (Auto) Abs Immat Gran (auto) Absolute Neuts (auto) Absolute Nucleated RBC Nucleated RBC % (auto) D-Dimer High Sensitivty VBG pH VBG pCO2 VBG pO2 VBG HCO3 VBG O2 Saturation VBG Base Excess Sodium Potassium Chloride Carbon Dioxide Anion Gap BUN Creatinine Estim Creat Clear Calc Estimated GFR POC Glucose 185 H 212 H Random Glucose Uric Acid Calcium Total Bilirubin Direct Bilirubin AST ALT Alkaline Phosphatase Total Creatine Kinase Troponin I High Sens B-Natriuretic Peptide Total Protein Albumin Triglycerides Cholesterol LDL Cholesterol, Calc HDL Cholesterol Urine Color Urine Appearance Urine pH Ur Specific [place] Urine Protein Urine Glucose (UA) Urine Ketones Urine Blood Urine Nitrite Ur Leukocyte Esterase Urine RBC Urine WBC Ur Squamous Epith Cells Calcium Oxalate Crystal Urine Bacteria Hyaline Casts Urine Osmolality 521 Ur Random Sodium 110.0 Urine Creatinine 75.56 Imaging Chest x-ray: My impression: cxr:1. No acute findings. Discharge Plan Discharge Anticipated Discharge Date/Time: 04/11/25 12:22 Patient Disposition: Home, Self-Care Discharge Diagnosis: chest pain Referrals: [facility] [Primary Care Provider] - 1 Week Discharge Medications: New (DME) FreeStyle Lite Strips Strip Qty: 100 0RF Rx Instructions: Test four times a day or as directed. (DME) blood-glucose meter [FreeStyle Lite Meter] Kit Qty: 1 0RF Rx Instructions: As Directed alcohol swabs Pads, Medicated 1 pad TOPICAL QIDACHS Qty: 100 0RF Rx Instructions: Use four times a day or as directed. insulin lispro [Humalog KwikPen Insulin] 100 unit/mL insulin pen 0 sliding scale dose SUBCUT QIDACHS Qty: 15 0RF Rx Instructions: Blood Sugar: <150 - 0 units 151-200 - 2 units 201-250 - 4 units 251-300 - 6 units 301-350 - 8 units >350 - 10 units insulin glargine [Lantus Solostar U-100 Insulin] 100 unit/mL (3 mL) insulin pen 10 unit SUBCUT DAILY Qty: 15 0RF (DME) pen needle, diabetic 32 gauge x 1/4 needle Qty: 100 0RF Rx Instructions: Use four times a day or as directed. (DME) lancets [FreeStyle Lancets] 28 gauge misc Qty: 100 0RF Rx Instructions: Test four times a day or as directed. amlodipine 2.5 mg tablet 2.5 mg PO DAILY Qty: 90 0RF Rx Instructions: use if bp persistently above 140/90mmhg Continued levothyroxine 200 mcg tablet 200 mcg PO DAILY@0600 allopurinol 100 mg tablet 100 mg PO DAILY Qty: 90 1RF gemfibrozil 600 mg tablet 600 mg PO DAILY 90 Days Qty: 90 1RF Held glipizide 10 mg tablet 10 mg PO DAILY Hold Instructions: Resume on 04/25/25. Ozempic 1 mg/dose (4 mg/3 mL) pen injector 1 mg subcut CHOUDHARY Hold Instructions: Resume on 04/25/25. metformin 1,000 mg tablet 1,000 mg PO DAILY 90 Days Qty: 90 1RF Hold Instructions: Resume on 04/25/25. losartan 25 mg tablet 25 mg PO DAILY 30 Days Qty: 30 1RF Hold Instructions: Resume on 04/17/25. Discharge Orders: Discharge Order (Routine); Ordered 04/11/25 Ordered By: Nika Ramos Diet: Advance to usual diet Activity on Discharge: As tolerated Stand Alone Forms: Patient Portal Discharge page Print Language: [place] Island[place] Other Ambulatory Orders: Basic Metabolic Panel (Routine) Timeframe: 1 Week Facility: [facility] [place] - Location: Laboratory Ordered By: Nika Ramos Hemoglobin A1c (Routine) Timeframe: 1 Week Facility: [facility] [place] - Location: Laboratory Ordered By: Nika Ramos Lipid Panel (Routine) Timeframe: 1 Week Facility: [facility] [place] - Location: Laboratory Ordered By: Nika Ramos Care Plan Goals: patient admitted for theron on ckd,hyponatremia , chest pain , dm with hyperglycemia: given hydration (theorn, hyponatremia-seem resolved). Hold losartan-due to THERON. Monitor BMP in 1 week and reintroduced if BMP allows. Chest pain: Troponin normal, stress test also normal, consider outpatient statin addition. Diabetes with hyperglycemia: Switched to Lantus due to hemoglobin A1c is 9.8. Also add a sliding scale, monitor fingersticks outpatient and consider further adjustment of Lantus outpatient. Currently will hold metformin/glipizide due to THERON and consider reintroduction out patiently after repeating BMP. htn : bp flactuating -added amlodipine 2.5 mg po qd : for blood pressure persistently elevated above 140/90mmhg. Health Concerns: hold glipizide, metformin, losartan,ozempic -further use after Monitor BMP and follow up with pcp outpatient. repeat lipid panel,consider outpatient statin addition. Consider outpatient Nephrology and Endocrinology outpatient Above management discussed with the patient detail length. Plan of Treatment: As above. Assessment: As above.
== END 2025-04-11 18:32 | disposition home or self-care (01) ==
LOC: HO.ED 21:12 → HO.EDOVER 21:20
PROVIDERS: Nurse Practitioner Family; Admitting Provider Student in an Organized Health Care Education/Training Program; Emergency Provider Emergency Medicine Emergency Medical Services; PCP Physician Assistant; Visit Provider Internal Medicine
DX: R07.89 Other chest pain (principal); N17.9 Acute kidney failure, unspecified; E87.1 Hypo-osmolality and hyponatremia; I10 Essential (primary) hypertension; E11.65 Type 2 diabetes mellitus with hyperglycemia; R06.02 Shortness of breath; R61 Generalized hyperhidrosis; R53.1 Weakness; R51.9 Headache, unspecified; E03.9 Hypothyroidism, unspecified; M10.9 Gout, unspecified; K21.9 Gastro-esophageal reflux disease without esophagitis; Z85.850 Personal history of malignant neoplasm of thyroid; Z79.899 Other long term (current) drug therapy
CPT/HCPCS: 36415; 71045; 80048; 80053; 80061; 80076; 81001; 82550; 82570; 82803; 82947; 83880; 83935; 84300; 84484; 84550; 85025; 85379; 93005; 93017; 96361; 96372; 96374; 99222; 99285; J1644; J1650; J2470; Q9957

== ENCOUNTER → 2025-04-10 19:05 | Outpatient (BNV) | payer OTHER, SELFPAY | PROVIDERS: Emergency Provider Emergency Medicine Emergency Medical Services; Visit Provider Student in an Organized Health Care Education/Training Program | DX: R07.9 Chest pain, unspecified (principal) | CPT/HCPCS: 71045 ==

== ENCOUNTER 2025-04-10 21:09 | Outpatient (BNV) | payer OTHER, SELFPAY | END 2025-04-11 10:05 | PROVIDERS: Admitting Provider Student in an Organized Health Care Education/Training Program; Emergency Provider Emergency Medicine Emergency Medical Services | DX: R07.9 Chest pain, unspecified (principal); R06.02 Shortness of breath | CPT/HCPCS: 93016; 93018 ==

== ENCOUNTER → 2025-04-10 21:09 | Outpatient (BNV) | payer OTHER, SELFPAY | PROVIDERS: Admitting Provider Student in an Organized Health Care Education/Training Program; Emergency Provider Emergency Medicine Emergency Medical Services; Visit Provider Nurse Practitioner Family | DX: R07.89 Other chest pain (principal) | CPT/HCPCS: 99223; 99239 ==

== ENCOUNTER → 2025-04-10 21:09 | Outpatient (BNV) | payer OTHER, SELFPAY | PROVIDERS: Admitting Provider Student in an Organized Health Care Education/Training Program; Emergency Provider Emergency Medicine Emergency Medical Services; Visit Provider Internal Medicine Cardiovascular Disease | DX: R07.89 Other chest pain (principal) | CPT/HCPCS: 93010; 99222 ==

== ENCOUNTER 2025-05-18 15:21 | Outpatient (AMB) | payer OTHER, SELFPAY ==
--- NOTE | 2025-05-18 15:23 | HO.NEPHOV_ITS ---
Vital Signs 05/18/25 15:28 Height 6 ft 2 in Weight 245 lb 6 oz BMI 31.5 BP 130/90 H Blood Pressure Location Lt brachial Position Sitting Pulse 89 Pulse Source Pulse Oximeter Pulse Oximetry (%) 97 Oxygen Delivery Method Room Air Intake Visit Reasons: [place] [facility] [place] Conf Program Director Required: No Accompanied by: Self / Same As Patient Allergies lisinopril Adverse Reaction (Intermediate, Uncoded 04/10/25 18:57) Dizziness HPI Comments Details: Thank you for referring Doe who is a 49 year male with CKD and hypertension who currently has THERON on CKD. He has high BMI as well as dyslipidemia. He had thyroid Cancer & had undergone total thyroidectomy 20 years ago for which he follows up with [employer]. He has type 2 DM and had not been regularly checking his blood sugars in the past. He is currently on Ozempic 1 mg, metformin and glipizide. Most recent A1c is above 9. He is not having any polydipsia or polyuria. He is hypertensive and his blood pressure acceptable today in office. He was on lisinopril 10 mg but had dizziness and was discon tinued. Currently he is on losartan for renal protection. He claims to be not taking excess NSAID's and maintaining good hydration. He has no hypercalcemia, no H/O proteinuria or any prosatic issues. He denies using drugs and has no H/O hepatitis or HIV. His serum creatinine had gone upto 2.32 which has improved to 1.58. He denies hematuria, dysuria, recent antibiotic intake, epistaxis, hemetemesis or melena. He had no specific systemic complaints at the time of this office visit. [facility] Medical History Marijuana use Alcohol use Pancreatitis DMII (diabetes mellitus, type 2) HTN (hypertension) Hypothyroidism (acquired) History of malignant neoplasm of thyroid HLD (hyperlipidemia) Gout Class 1 obesity Surgical History History of thyroid surgery History of cholecystectomy Social History Housing: House Alcohol intake: current Alcohol intake frequency: 0-2 drinks per day Alcohol type: hard liquor Comment: Patient drinks beer on the weekends usually a 6 pack or more Patient Tobacco Use Status: Never used Tobacco e-Cigarette/Vaping Use: Never Used Second Hand Smoke Exposure: No Substance Use Type: Marijuana service: No Current occupational status: employed 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- [employer] Cognitive needs: No Hearing needs: No Vision needs: Yes (Glasses) Physical Exam Vital Signs: Last Vital Signs Pulse 89 05/18/25 15:28 BP 130/90 H 05/18/25 15:28 Pulse Ox 97 05/18/25 15:28 Oxygen Delivery Method Room Air 05/18/25 15:28 BMI result Body Mass Index 31.5 Results Reviewed Nephrology Results: Hgb, (14.0-18.0) 12.9 g/dl L 04/11/25 WBC, (4.8-10.8) 6.1 X10*3/uL 04/11/25 Plt Count, (160-400) 192 X10*3/uL 04/11/25 Sodium, (135-145) 135 mmol/L 04/11/25 Potassium, (3.3-5.1) 4.4 mmol/L 04/11/25 Chloride, (96-108) 107 mmol/L 04/11/25 Carbon Dioxide, (22-29) 20 mmol/L L 04/11/25 BUN, (9-16) 33 mg/dL H 04/11/25 Creatinine, (0.5-1.4) 1.58 mg/dL H 04/11/25 Calcium, (8.4-10.2) 8.6 mg/dL Δ 04/11/25 Urine Protein, (Neg-Trace) Negative mg/dL 04/10/25 Urine Creatinine 75.56 mg/dL 04/11/25 Assessment & Plan Assessment & Plan (1) Acute kidney injury superimposed on chronic kidney disease: Code(s): N17.9 - Acute kidney failure, unspecified; N18.9 - Chronic kidney disease, unspecified Category: Medical (2) HTN (hypertension): Code(s): I10 - Essential (primary) hypertension Category: Medical Qualifiers: Hypertension type: primary hypertension Qualified Code(s): I10 - Essential (primary) hypertension Plan 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 He recently had dizziness, likely from low BP. He likely had reduced renal perfusion at that time. He was on ACEI which would have caused altered autoregulation of the kidney with THERON causing serum creatinine to go up to 2.32. His ACEI was changed to ARB by PCP. He has no prostatic issues, neurogenic bladder, nausea, vomiting or diarrhea. He should keep up with good fluid intake. I shall back off/hold his ARB if his serum creatinine does not settle to baseline. I have ordered renal imaging and detailed work up. He will be a great candidate for SGLT2i soon. He should minimize or avoid NSAID's. Further mangement is pending evolving data. Answered all questions. Orders: Orders UA and rflx microscopic 1 Month N17.9 - Acute kidney failure, unspecified, N18.9 - Chronic kidney disease, unspecified Protein Creatinine Ratio, Ur 1 Month N17.9 - Acute kidney failure, unspecified, N18.9 - Chronic kidney disease, unspecified Hepatitis B Core Antibody 1 Month N17.9 - Acute kidney failure, unspecified, N18.9 - Chronic kidney disease, unspecified Hepatitis B Surface Antigen 1 Month N17.9 - Acute kidney failure, unspecified, N18.9 - Chronic kidney disease, unspecified Hepatitis C Antibody Reflex 1 Month N17.9 - Acute kidney failure, unspecified, N18.9 - Chronic kidney disease, unspecified Anti DNA DS Antibody 1 Month N17.9 - Acute kidney failure, unspecified, N18.9 - Chronic kidney disease, unspecified Complement C3 1 Month N17.9 - Acute kidney failure, unspecified, N18.9 - Chronic kidney disease, unspecified Immunofixation Pnl, Serum 1 Month N17.9 - Acute kidney failure, unspecified, N18.9 - Chronic kidney disease, unspecified Phospholipase A2 Receptor Pnl 1 Month N17.9 - Acute kidney failure, unspecified, N18.9 - Chronic kidney disease, unspecified Complete Blood Count Auto Diff 1 Month N17.9 - Acute kidney failure, unspecified, N18.9 - Chronic kidney disease, unspecified Immunofixation, Random Urine 1 Month N17.9 - Acute kidney failure, unspecified, N18.9 - Chronic kidney disease, unspecified US renal BI 1 Month N17.9 - Acute kidney failure, unspecified, N18.9 - Chronic kidney disease, unspecified Calcium 1 Month N17.9 - Acute kidney failure, unspecified, N18.9 - Chronic kidney disease, unspecified Electrolytes 1 Month N17.9 - Acute kidney failure, unspecified, N18.9 - Chronic kidney disease, unspecified Blood Urea Nitrogen 1 Month N17.9 - Acute kidney failure, unspecified, N18.9 - Chronic kidney disease, unspecified Creatinine 1 Month N17.9 - Acute kidney failure, unspecified, N18.9 - Chronic kidney disease, unspecified Proteinase 3 PR3 Antibodies 1 Month N17.9 - Acute kidney failure, unspecified, N18.9 - Chronic kidney disease, unspecified Myeloperoxidase Antibody 1 Month N17.9 - Acute kidney failure, unspecified, N 18.9 - Chronic kidney disease, unspecified Anti Glomerular Basement Memb 1 Month N17.9 - Acute kidney failure, unspecified, N18.9 - Chronic kidney disease, unspecified Complement C4 1 Month N17.9 - Acute kidney failure, unspecified, N18.9 - Chronic kidney disease, unspecified US renal doppler 1 Month I10 - Essential (primary) hypertension, N17.9 - Acute kidney failure, unspecified, N18.9 - Chronic kidney disease, unspecified Coding Level of Care Code New Pt Level 4 (40364) Diagnoses Acute kidney injury superimposed on chronic kidney disease N17.9; N18.9 Primary hypertension I10 Hypertension type: primary hypertension
--- OUTSIDE RECORDS SUMMARY | 2025-05-18 15:23 | XMS_ITS | Clinical Summary ---
Author Organization [facility] Address [address] [place] [phone] Phone Care Team Providers Care Roll Cutting Operator Name Role Phone Ricky Raymond MD Primary Care Provider + Allergies No known active allergies Medications gemfibroziL (LOPID) 600 MG tablet Take 600 mg by mouth daily. 09/13/20 22 Active glipiZIDE (GLUCOTROL XL) 10 MG 24 hr tablet Take 10 mg by mouth daily. 08/23/20 22 Active levothyroxine (SYNTHROID, LEVOTHROID) 175 MCG tablet Take 175 mcg by mouth daily. 08/20/20 22 Active lisinopril (PRINIVIL,ZESTRI L) 10 MG tablet Take 10 mg by mouth daily. 09/13/20 22 Active metFORMIN (GLUCOPHAGE) 1000 MG tablet Take 1,000 mg by mouth. 09/19/20 21 Active metoprolol succinate (TOPROL-XL) 50 MG 24 hr tablet Take 25 mg by mouth daily. 09/07/20 22 Active OZEMPIC 0.25 mg or 0.5 mg(2 mg/1.5 mL) subcutaneous injection pen INJECT 0.5 MG SUBCUTANEOUSLY EVERY 7 DAYS. ROTATE INJECTION SITES 09/09/20 22 Active allopurinol (ZYLOPRIM) 100 MG tablet Take 100 mg by mouth. 10/04/20 22 Active ergocalciferol (DRISDOL) 50,000 unit capsuleIndicatio ns:Vitamin D deficiency Take 1 capsule (50,000 Units total) by mouth once a week. 12 capsule 06/23/20 23 Active oxyCODONE-acetam inophen (PERCOCET) 5-325 mg per tablet Take 1 tablet by mouth as needed. 08/20/20 Active ondansetron (ZOFRAN) 4 MG tablet Take 1 tablet by mouth as needed. 08/20/20 Active ibuprofen (ADVIL,MOTRIN) 600 MG tablet Take 1 tablet by mouth as needed. 08/20/20 Active amoxicillin (AMOXIL) 500 MG capsule Take 500 mg by mouth 3 (three) times a day. 08/20/20 Active Active Problems Problem Noted Date Diagnosed Date Vitamin D deficiency 06/23/2023 Assessment & Plan (06/23/2023 4:18 PM EDT): Will prescribe CIPRO 50,000 units weekly for period of 3 months and he will repeat levels in 3 months. Stress fracture of left foot 03/10/2023 Assessment & Plan (06/23/2023 4:18 PM EDT): Evaluated for osteoporosis/osteopenia but based on Z score and T score he does not have this condition. Also request a secondary biochemical work-up testosterone still pending vitamin D was found to be deficient. Assessment & Plan (03/10/2023 4:41 PM EDT): The patient had a stress fracture from walking. At this point I would like to evaluate for osteopenia/osteoporosis. He did have history of papillary thyroid carcinoma and most likely will had TSH suppression which can result in bone resorption and osteopenia/osteoporosis. I would like to check vitamin D to make sure he is not deficient. He does not appear to have hyperparathyroidism but we can check PTH for hyperparathyroidism. I am checking testosterone level for hypogonadism and baseline CBC and comprehensive levels. Hx of papillary thyroid carcinoma 03/10/2023 Assessment & Plan (06/23/2023 4:21 PM EDT): Thyroglobulin levels undetectable with negative thyroglobulin antibodies with TSH of 3.90 IU/mL he is in remission does not require TSH suppression. Thyroglobulin tumor marker could be checked on a yearly basis. Assessment & Plan (03/10/2023 4:50 PM EDT): The patient underwent completion thyroidectomy had radioactive iodine ablation with 63 mCi of iodine-131 this occurred in September 2013. Thyroglobulin level was detectable at 1.4 but this was with a TSH of 44.9 IU/mL the thyroglobulin result was accurate because thyroglobulin antibodies were negative. He was placed on large dose of levothyroxine unclear if he had TSH suppression I expect that he probably did. He is no longer being monitored for thyroid carcinoma. I will check thyroglobulin tumor marker. Postablative hypothyroidism 03/10/2023 Assessment & Plan (06/23/2023 4:21 PM EDT): Chemically and clinically euthyroid with levothyroxine 175 mcg he can continue the current dose. He is currently following with his primary care physician and will continue to follow with him for management of hypothyroidism. Assessment & Plan (03/10/2023 4:42 PM EDT): He is currently on levothyroxine 175 mcg he has been losing weight loss 15 pounds after being placed on Ozempic we need to repeat thyroid function studies to see if his TSH is suppressed. I do not know if he requires TSH suppression I doubt related after all these years. Other obesity 03/10/2023 Assessment & Plan (03/10/2023 4:42 PM EDT): Requesting vitamin D level Family History Medical History Relation Comments Diabetes Father Hypertension Father Thyroid cancer Mother Relation Status Comments Father Alive Mother Alive Social History Tobacco Use Types Packs/Day Years Used Date Smoking Tobacco: Never Smokeless Tobacco: Never Alcohol Use Standard Drinks/Week Comments Yes 6 (1 standard drink = 0.6 oz pur e alcohol) Weekends Education Answer Date Recorded Are you interested in more education? Not on grant e 02/26/2023 Are you concerned about learning? Not on file 02/26/2023 No 02/26/2023 No 02/26/2023 Digital Access Answer Date Recorded No 03/26/2023 No 03/26/2023 Reliable internet access at home? Not on file 03/26/2023 Device with a working camera? Not on file Sex and Gender Information Value Date Recorded Sex Assigned at Not on file Legal Sex Male 9:28 PM EDT Gender Identity Not on file Sexual Orientation Not on file Last Filed Vital Signs Vital Sign Reading Time Taken Comments Blood Pressure 126/80 06/23/2023 4:01 PM EDT Pulse 82 06/23/2023 4:01 PM EDT Temperature 36.3 C (97.4 F) 06/23/2023 4:01 PM EDT Respiratory Rate - - Oxygen Saturation 99% 06/23/2023 4:01 PM EDT Inhaled Oxygen Concentration - - Weight 108.7 kg (239 lb 9.6 oz) 06/23/2023 4:01 PM EDT Height 183.7 cm (6' 0.32 ) 06/23/2023 4:01 PM ED T Body Mass Index 32.21 06/23/2023 4:01 PM EDT Plan of Treatment Health Maintenance Due Date Last Done Comments LIPID PANEL 1975 DEPRESSION SCREENING 1987 HEPATITIS C SCREENING 1993 HIV ONE-TIME SCREENING (18-6 5 YEARS) 1993 COLOGUARD 2020 COLONOSCOPY 2020 COLORECTAL CANCER SCREENING 2020 FIT TEST 2020 FOBT 2020 SIGMOIDOSCOPY 2020 VIRTUAL COLONOSCOPY 2020 CREATININE LEVEL 06/19/2024 06/19/2023 POTASSIUM LEVEL 06/19/2024 06/19/2023 TSH LEVEL 06/19/2024 06/19/2023 COVID-19 VACCINE (3 - 2023-2 5 season) 2024 02/27/2021, 02/09/2021 SCREENING FOR DIABETES 06/19/2026 06/19/2023 Adult Td,Tdap Booster 08/26/2027 08/26/2017 , 11/01/2004, 11/01/2004 SMOKING STATUS SCREENING (On ce After 26 Yrs) Completed 06/23/2023 HEPATITIS A VACCINES Aged Out No long er eligible based on patient's age to complete this topic HIB VACCINES Aged Out No longer eligi ble based on patient's age to complete this topic MENINGOCOCCAL VACCINES (ACWY) Aged Out No longer eligible based on patient's age to complete this topic MENINGOCOCCAL VACCINES (B) Aged Out N o longer eligible based on patient's age to complete this topic PNEUMOCOCCAL VACCINES (0-49 years) Aged Out No longer eligible b ased on patient's age to complete this topic Medical Devices Not on file Procedures Procedure Name Priority Date/Time Associated Diagnosis Comments TSH Routine 06/19/2023 9:35 AM EDT Postablative hypothyroidism COMPREHENSIVE METABOLIC PANEL Routine 06/19/2023 9:35 AM EDT Stress fracture of left foot, initial encounter from Last 3 Months or Most Recently Relevant to Health Maintenance Results * (ABNORMAL) Comprehensive metabolic panel (06/19/2023 9:35 AM EDT) SODIUM 139 133 - 146 mmol/L [facility] POTASSIUM 5.9(H) 3.3 - 5.1 mmol/L [facility] Comment:Specimen slightly he molyzed, result may be falsely elevated. CHLORIDE 105 96 - 108 mmol/L [facility] CO2 25 21 - 35 mmol/L [facility] BUN 27(H) 6 - 19 mg/dL [facility] CREATININE 1.40 0.5 - 1.5 mg/dL [facility] GLUCOSE 76 70 - 99 mg/dL [facility] ALBUMIN 4.8 3.9 - 4.8 g/dL [facility] TOTAL PROTEIN 7.8 6.5 - 8.0 g/dL [facility] CALCIUM 9.4 8.4 - 10.3 mg/dL [facility] ALKALINE PHOSPHATASE 78 39 - 117 U/L [facility] TOTAL BILIRUBIN 0.6 0.0 - 1.2 mg/dL [facility] AST 18 0 - 37 U/L [facility] ALT 14 0 - 40 U/L [facility] GLOBULIN 3.0 1 - 4.8 g/dL [facility] EGFR 62 >59 mL/min/1.7 3m2 [facility] Comment:Estimated glomerular filtration rate calculated using the CKD-EPI refit equation. ANION GAP 15 10 - 20 mmol/L [facility] Blood 06/19/2023 9:35 AM EDT 06/19/2023 9:39 AM EDT us Kenny Valerio DO LAB BLOOD ORDERABLES Final Resul t [facility] [address] [place] [address] * TSH (06/19/2023 9:35 AM EDT) TSH 3.90 0.27 - 4.20 uIU/mL [facility] Blood 06/19/2023 9:35 AM EDT 06/19/2023 9:39 AM EDT us Kenny Valerio DO LAB BLOOD ORDERABLES Final Resul t [address] [id number] from Last 3 Months or Most Recently Relevant to Health Maintenance Insurance OUT OF STATE PPO [employer] OUT OF [facility] PPO [employer]UE [place] OUT OF STATE PPO [employer] [place] OUT OF STATE PPO BL[employer] [place] OUT OF STATE PPO BLUE [place] OUT OF STATE PPO Care Teams Roll Cutting Operator Relationship Specialty Start Date End Date Ricky Raymond MD [address] [place] [id number] PCP - General Family Medicine 09/28/22 Additional Source Comments The information contained in this document represents components of the legal health record. It is not the complete legal health record.[facility]
[2025-05-18 15:28] VITALS: BP 130/90; PULSE 89; O2SAT 97; BMI 31.5
== END 2025-05-18 15:46 | disposition home or self-care (01) ==
LOC: HO.HKA 15:21
PROVIDERS: PCP Physician Assistant; Visit Provider Internal Medicine Nephrology
DX: N17.9 Acute kidney failure, unspecified (principal); I12.9 Hypertensive chronic kidney disease with stage 1 through stage 4 chronic kidney disease, or unspecified chronic kidney disease; N18.9 Chronic kidney disease, unspecified
CPT/HCPCS: 99204

== ENCOUNTER → 2025-05-18 15:21 | Outpatient (BNVA) | payer OTHER, SELFPAY | PROVIDERS: PCP Physician Assistant; Visit Provider Internal Medicine Nephrology | DX: I10 Essential (primary) hypertension (principal); N18.9 Chronic kidney disease, unspecified; N17.9 Acute kidney failure, unspecified | CPT/HCPCS: 99202 ==

== ENCOUNTER 2025-07-07 09:06 | Outpatient (REF) | payer OTHER, SELFPAY ==
--- OUTSIDE RECORDS SUMMARY | 2025-07-07 09:10 | XMS_ITS | Encounter Summary ---
Author Organization [facility] Address [address] [place] [address] Care Team Providers Care Supervisor Metal Hanging Name Role Phone Rogerio Pate MD Primary Care Provider + [phone] [facility], Pcp [facility]io Pate MD Primary Care Provider + [phone] Encounter Details Date Type Department Care Team Description 08/29/2013 Hospital Medical Records [address] [place] [address] Orlin Solis MD Social History Tobacco Use Types Packs/Day Years Used Date Smoking Tobacco: Never Smokeless Tobacco: Never Alcohol Use Standard Drinks/Week Comments Yes 0 (1 standard drink = 0.6 oz pur e alcohol) social Sex Assigned at Date Recorded Not on file documented as of this encounter Plan of Treatment Not on file documented as of this encounter Visit Diagnoses Not on filedocumented in this encounter Care Teams Supervisor Metal Hanging Relationship Specialty Start Date End Date Rogerio Pate MD [address] [place] [address] [phone] PCP - General 04/13/1997 09/13/13 [facility], Pcp [address] [place] [address] [phone] PCP - General Internal Medicine 09/14/13 09/14/13 Rogerio Pate MD [address] [place] [address] [phone] PCP - General Internal Medicine 09/15/13 documented as of this encounter
--- OUTSIDE RECORDS SUMMARY | 2025-07-07 09:10 | XMS_ITS | Encounter Summary ---
Author Organization [facility] Address [address] [place] [address] Care Team Providers Care Marketing Technology Specialist Name Role Phone Rogerio Pate MD Primary Care Provider + [phone] Encounter Details Date Type Department Care Team Description 09/25/2013 Hospital Medical Records [address] [place] [address] Marcus Coronel Social History Tobacco Use Types Packs/Day Years [...] on filedocumented in this encounter Care Teams Marketing Technology Specialist Relationship Specialty Start Date End Date Rogerio Pate MD [address] [place], [place] [phone] PCP - General Internal Medicine 09/15/13 documented as of this encounter
--- OUTSIDE RECORDS SUMMARY | 2025-07-07 09:10 | XMS_ITS | Encounter Summary ---
Author Organization [facility] Address [address] [place] [address] Care Team Providers Care Voting Machine Repairer Name Role Phone Rogerio Pate MD Primary Care Provider + [phone] [facility], Pcp [facility] Rogerio [facility]ate MD Primary Care Provider + [phone] Encounter Details Date Type Department Care Team Description 03/20/2011 Release of Information Orthopedic Surgery - [address] [place] [address] Abstract, Provider Social History Tobacco Use Types Packs/Day Years Used Date Smoking Tobacco: Never Alcohol Use Standard Drinks/Week Comments Not Asked 0 (1 standard drink = 0.6 oz pur e alcohol) Sex Assigned at Date Recorded Not on file documented as of this encounter Plan of Treatment Not on file documented as of this encounter Visit Diagnoses Not on filedocumented in this encounter Care Teams Voting Machine Repairer Relationship Specialty Start Date End Date Rogerio Pate MD [address] [place] [phone] PCP - General 04/13/1997 09/13/13 [facility], Pcp [address] [place] [phone] PCP - General Internal Medicine 09/14/13 09/14/13 Rogerio Pate MD [address] [place] [phone] PCP - General Internal Medicine 09/15/13 documented as of this encounter
--- OUTSIDE RECORDS SUMMARY | 2025-07-07 09:10 | XMS_ITS | Encounter Summary ---
Author Organization [facility] Address [address] [place] [address] Care Team Providers Care Subway Train Driver Name Role Phone Rogerio Pate MD Primary Care Provider + [phone] [facility], Pcp [facility]io [facility]ate MD Primary Care Provider + [phone] Encounter Details Date Type Department Care Team Description 08/28/2013 Hospital Medical Records [address] [place] [address] Bal Benson MD Social History Tobacco Use Types Packs/Day [...] on filedocumented in this encounter Care Teams Subway Train Driver Relationship Specialty Start Date End Date Rogerio Pate MD [address] [place] [address] [phone] PCP - General 04/13/1997 09/13/13 [facility], Pcp [address] [place] [address] [phone] PCP - General Internal Medicine 09/14/13 09/14/13 Rogerio Pate MD [address] [place] [address] [phone] PCP - General Internal Medicine 09/15/13 documented as of this encounter
--- OUTSIDE RECORDS SUMMARY | 2025-07-07 09:10 | XMS_ITS | Encounter Summary ---
Author Organization [facility] Address [address] [place] [address] Care Team Providers Care Club Director Name Role Phone Rogerio Pate MD Primary Care Provider + [phone] Reason for Visit * Reason Onset Date Comments Hospice Patient 09/26/2013 Encounter Details Date Type Department Care Team Description 09/26/2013 Telephone Adult Medicine [address] [address] Rogerio Pate MD [address] [place] [address] Hospice Patient Social History Tobacco Use Types Packs/Day Years Used Date Smoking Tobacco: Never Smokeless Tobacco: Never Alcohol Use Standard Drinks/Week Comments Not Asked 0 (1 standard drink = 0.6 oz pur e alcohol) Sex Assigned at Date Recorded Not on file documented as of this encounter Miscellaneous Notes * Telephone Encounter - Marguerite Naikjimbo - 09/26/2013 2:25 PM EST Order to be signed from [facility].. In bin on door to Dr. Pate. documented in this encounter Plan of Treatment Not on file documented as of this encounter Visit Diagnoses Not on filedocumented in this encounter Care Teams Club Director Relationship Specialty Start Date End Date Rogerio Pate MD [address] [place] [id number] PCP - General Internal Medicine 09/15/13 documented as of this encounter
--- OUTSIDE RECORDS SUMMARY | 2025-07-07 09:10 | XMS_ITS | Clinical Summary ---
Author Organization [facility] Address [address] [place] [phone] Phone Care Team Providers Care Admitting Coordinator Name Role Phone Ricky Raymond MD Primary [...] LEVEL 06/19/2024 06/19/2023 TSH LEVEL 06/19/2024 06/19/2023 INFLUENZA VACCINE (#1) 2025 COVID-19 VACCINE (3 - 2024-2 6 season) 2025 02/27/2021, 02/09/2021 SCREENING FOR DIABETES 06/19/2026 06/19/2023 [...] EDT) SODIUM 139 133 - 146 mmol/L [facility] POTASSIUM 5.9(H) 3.3 - 5.1 mmol/L [facility] Comment:Specimen slightly he molyzed, result may be falsely elevated. CHLORIDE 105 96 - 108 mmol/L [facility] CO2 25 21 - 35 mmol/L [facility] BUN 27(H) 6 - 19 mg/dL [facility] CREATININE 1.40 0.5 - 1.5 mg/dL [facility] GLUCOSE 76 70 - 99 mg/dL [facility] ALBUMIN 4.8 3.9 - 4.8 g/dL [facility] TOTAL PROTEIN 7.8 6.5 - 8.0 g/dL [facility] CALCIUM 9.4 8.4 - 10.3 mg/dL [facility] ALKALINE PHOSPHATASE 78 39 - 117 U/L [facility] TOTAL BILIRUBIN 0.6 0.0 - 1.2 mg/dL [facility] AST 18 0 - 37 U/L [facility] ALT 14 0 - 40 U/L [facility] GLOBULIN 3.0 1 - 4.8 g/dL [facility] EGFR 62 >59 mL/min/1.7 3m2 [facility] Comment:Estimated glomerular filtration rate calculated using the CKD-EPI refit equation. ANION GAP 15 10 - 20 mmol/L [facility] Blood 06/19/2023 9:3 5 AM EDT 06/19/2023 9:39 AM EDT Kenny Valerio DO LAB BLOOD ORDERABLES Final Resul t [address] [address] * TSH (06/19/2023 9:35 AM EDT) TSH 3.90 0.27 - 4.20 uIU/mL [facility] Blood 06/19/2023 9:35 AM EDT 06/19/2023 9:39 AM EDT Kenny Valerio DO LAB BLOOD ORDERABLES Final Resul t [address] [address] from Last 3 Months or Most Recently Relevant to Health Maintenance Insurance [place] OUT [place] STATE PPO [place] OUT [place] PPO [place] OUT OF STATE PPO [place] OUT OF STATE PPO BL[place] OUT OF STATE PPO [place] OUT OF STATE PPO Care Teams Admitting Coordinator Relationship Specialty Start Date End Date Ricky Raymond MD [address] [place] [phone] PCP - General Family Medicine 09/28/22 Additional Source Comments The information contained in this document represents components of the legal health record. It is not the complete legal health record.[facility]
--- OUTSIDE RECORDS SUMMARY | 2025-07-07 09:10 | XMS_ITS | Encounter Summary ---
Author Organization [facility] Address [address] [place] [address] Care Team Providers Care Dietary Aid Name Role Phone Rogerio Pate MD Primary Care Provider + [phone] [facility], Pcp [facility] Rogerio Colon MD Primary Care Provider + [phone] Encounter Details Date Type Department Care Team Description 01/12/2013 Release of Information Medical Records [address] [place] [id number] Abstract, Provider Social History Tobacco Use Types [...] on filedocumented in this encounter Care Teams Dietary Aid Relationship Specialty Start Date End Date Rogerio Pate MD [address] [place] [address] [phone] PCP - General 04/13/1997 09/13/13 [facility], Pcp [address] [place] [phone] PCP - General Internal Medicine 09/14/13 09/14/13 Rogerio Pate MD [address] [place] [address] [phone] PCP - General Internal Medicine 09/15/13 documented as of this encounter
--- OUTSIDE RECORDS SUMMARY | 2025-07-07 09:10 | XMS_ITS | Encounter Summary ---
Author Organization [facility] Address [address] [place] [address] Care Team Providers Care X Ray Electronics Wireman Name Role Phone Rogerio Pate MD Primary Care Provider + [phone] Reason for Visit * Reason Comments E-prescribe Rx Request Encounter Details Date Type Department Care Team Description 06/05/2017 Refill Adult Medicine [facility] [address] [place] [address] Rogerio aPte MD [address] [place] [address] E-prescribe Rx Request Social History Tobacco Use Types Packs/Day Years Used Date Smoking Tobacco: Never Smokeless Tobacco: Never Alcohol Use Standard Drinks/Week Comments Not Asked 0 (1 standard drink = 0.6 oz pur e alcohol) Sex Assigned at Date Recorded Not on file documented as of this encounter Miscellaneous Notes * Telephone Encounter - Mel Jarrell - 06/09/2017 10:42 AM EDT [employer] message sent to pt to contact our office to reschedule/ book sooner appt. * Telephone Encounter - Sheri Ferrer M.A. - 06/07/2017 10:10 AM EDT Needs sooner appt Can not wait til 08/17 Ok with midlevel * Telephone Encounter - Mel SantosoTaylorNathan - 06/07/2017 8:44 AM EDT Patient would like script to be: E-PRESCRIBED/FAXED TO PHARMACY WHEN WAS THE PATIENT'S LAST APPOINTMENT IN ADULT MEDICINE? 01.16.16 WHEN WAS THE LAST TIME THE PATIENT SAW THEIR PCP? 10.10.14 Does patient have an upcoming appointment? Yes 08.26.17 with Rogerio Pate (THE MEDICATION REQUESTED IS ON THE MED LIST ABOVE) All of the medications requested were on the CURRENT MEDS list Did you check the Pharmacy information above?: YES Patient wants: 90 -day supply Is this a mail order prescription request ? NO Patients current insurance carrier is: Payor: [facility] / Plan: O $0 AMANDA [id number] / Product Type: PPO [id number] documented in this encounter Plan of Treatment Not on file documented as of this encounter Visit Diagnoses Not on filedocumented in this encounter Care Teams [employer] Wireman Relationship Specialty Start Date End Date Rogerio Pate MD [address] [place] [phone] PCP - General Internal Medicine 09/15/13 documented as of this encounter
--- OUTSIDE RECORDS SUMMARY | 2025-07-07 09:10 | XMS_ITS | Encounter Summary ---
Author Organization [facility] Address [address] [place] [address] Care Team Providers Care Paper Cup Machine Tender Name Role Phone Rogerio Pate MD Primary Care Provider + [phone] [facility], Pcp Primary Care Provider [facility] Rogerio Pate MD Primary Care Provider + [phone] Encounter Details Date Type Department Care Team Description 12/28/2012 Hospital Medical Records [address] [place] [address] Mima Guajardo MD Social History Tobacco Use Types Packs/Day [...] on filedocumented in this encounter Care Teams Paper Cup Machine Tender Relationship Specialty Start Date End Date Rogerio Pate MD [address] [place] [phone] PCP - General 04/13/1997 09/13/13 [facility], Pcp [address] [place] [phone] PCP - General Internal Medicine 09/14/13 09/14/13 Rogerio Pate MD [address] [place] [address] [phone] PCP - General Internal Medicine 09/15/13 documented as of this encounter
--- OUTSIDE RECORDS SUMMARY | 2025-07-07 09:10 | XMS_ITS | Encounter Summary ---
Author Organization [facility] Address [address] [place] [address] Care Team Providers Care Assisted Living Care Manager Name Role Phone Rogerio Pate MD Primary Care Provider + [phone] Reason for Visit * Reason Onset Date Comments Provider Call Back 08/02/2014 Encounter Details Date Type Department Care Team Description 08/02/2014 Telephone Adult Medicine [facility] [address] [place] [address] Rogerio Pate MD [address] [place] [address] Provider Call Back Social History Tobacco Use Types Packs/Day Years Used Date Smoking Tobacco: Never Smokeless Tobacco: Never Alcohol Use Standard Drinks/Week Comments Not Asked 0 (1 standard drink = 0.6 oz pur e alcohol) Sex Assigned at Date Recorded Not on file documented as of this encounter Miscellaneous Notes * Telephone Encounter - Radha Meyers M.A. - 08/02/2014 2:01 PM EDT Message left for patient to return my call. * Telephone Encounter - Orlin Solis MD - 08/02/2014 1:46 PM EDT The patient will take 200 mcg of levothyroxine and 25 mcg of levothyroxine. Please schedule to see me in 2 months. * Telephone Encounter - Little Marroquin - 08/02/2014 10:13 AM EDT Patient came in this morning, he said Dr Solis wanted to speak to him in regards to his thyroid. Can Dr Solis call him back today if possible at [phone] documented in this encounter Plan of Treatment Not on file documented as of this encounter Visit Diagnoses Not on filedocumented in this encounter Care Teams Assisted Living Care Manager Relationship Specialty Start Date End Date Rogerio Pate MD [address] [place] [phone] PCP - General Internal Medicine 09/15/13 documented as of this encounter
--- OUTSIDE RECORDS SUMMARY | 2025-07-07 09:10 | XMS_ITS | Encounter Summary ---
Author Organization [facility] Address [address] [place] [address] Care Team Providers Care Special Police Name Role Phone Rogerio Pate MD Primary Care Provider + [phone] [facility], Pcp [facility] Rogerio Pate MD Primary Care Provider + [phone] Encounter Details Date Type Department Care Team Description 06/08/2013 Hospital Medical Records [address] [place] [address] Bal Benson MD Social History Tobacco Use [...] on filedocumented in this encounter Care Teams Special Police Relationship Specialty Start Date End Date Rogerio Pate MD [address] [place] [address] [phone] PCP - General 04/13/1997 09/13/13 [facility], Pcp [address] [place] [phone] PCP - General Internal Medicine 09/14/13 09/14/13 Rogerio Pate MD [address] [place] [address] [phone] PCP - General Internal Medicine 09/15/13 documented as of this encounter
--- OUTSIDE RECORDS SUMMARY | 2025-07-07 09:10 | XMS_ITS | Encounter Summary ---
Author Organization [facility] Address [address] [place] [address] Care Team Providers Care Cash Register Mechanic Name Role Phone Rogerio Pate MD Primary Care Provider + [phone] Reason for Visit * Reason Comments E-prescribe Rx Request Encounter Details Date Type Department Care Team Description 01/20/2020 Refill Adult Medicine [facility] [address] [place] [id number] Rogerio Pate MD [address] [place] [phone] E-prescribe Rx Request Social History Tobacco Use Types Packs/Day Years Used Date Smoking Tobacco: Never Smokeless Tobacco: Never Alcohol Use Standard Drinks/Week Comments Yes 0 (1 standard drink = 0.6 oz pur e alcohol) social Sex Assigned at Date Recorded Not on file documented as of this encounter Miscellaneous Notes * Telephone Encounter - Reuben Gomez M.A. - 01/23/2020 12:09 PM EDT Faxed to pharmacy * Telephone Encounter - Eduarda Guadarrama M.A. - 01/22/2020 2:45 PM EDT Lab Results Component Value Date HGBA1C 11.0 12/01/2018 MALBUR 21.9 12/01/2018 MALBCR 6.8 12/01/2018 CHOL 204 12/01/2018 LDL TNP 12/01/2018 HDL 30 12/01/2018 TRIG 866 12/01/2018 GLU 326 12/06/2018 CREAT 1.31 12/01/2018 * Telephone Encounter - Cherri Tutu - 01/22/2020 2:39 PM EDT Patient would like script to be: E-PRESCRIBED/FAXED TO PHARMACY WHEN WAS THE PATIENT'S LAST APPOINTMENT IN ADULT MEDICINE? 12/13/18 WHEN WAS THE LAST TIME THE PATIENT SAW THEIR PCP? 12/06/18 Does patient have an upcoming appointment? NO (THE MEDICATION REQUESTED IS ON THE MED LIST ABOVE) All of the medications requested were on the CURRENT MEDS list Did you check the Pharmacy information above?: YES Patient wants: 30 -day supply Is this a mail order prescription request ? NO If the refill is from a FAXED refill request what is the RX # listed on the fax? N/A Patients current insurance carrier is: Payor: [facility] / Plan: PPO $0 AMANDA [id number] / Product Type: PPO [id number] documented in this encounter Plan of Treatment Not on file documented as of this encounter Visit Diagnoses Diagnosis Type 2 diabetes mellitus without complication, without long-term current use of insulin (HCC) documented in this encounter Care Teams Cash Register Mechanic Relationship Specialty Start Date End Date Rogerio Pate MD [address] [place] [address] PCP - General Internal Medicine 09/15/13 documented as of this encounter
[2025-07-07 09:39] LABS: MANUAL DIFF FLAG NO
[2025-07-07 11:23] LABS: Hematocrit 45.4 % (42.0-52.0); Hemoglobin 14.9 g/dl (14.0-18.0); Imm Gran Abs Auto 0.02 X10*3/uL (0.00-0.03); Imm Gran Pct Auto 0.4 % (0.0-0.4); Lymphocytes Absolute Auto 1.2 X10*3/uL (1.2-4.9); Mean Corpuscular HGB Conc 32.8 g/dl (31.0-36.0); Mean Corpuscular Hemoglobin 28.2 pg (27.0-33.0); Mean Corpuscular Volume 85.8 fL (80.0-98.0); NRBC Abs Auto 0.000 X10*3/uL (0.0-0.012); NRBC Pct Auto 0.0 /100WBC (0.0-0.2); Platelet Count 176 X10*3/uL (160-400); Red Blood Count 5.29 X10*6/uL (4.60-5.80); White Blood Count 5.0 X10*3/uL (4.8-10.8)
[2025-07-07 12:18] LABS: Anion Gap 14 (12-20); Blood Urea Nitrogen 24 mg/dL (9-16); Calcium 8.9 mg/dL (8.4-10.2); Carbon Dioxide 26 mmol/L (22-29); Chloride 103 mmol/L (96-108); Estimated Glomerular Filt Rate 57; Potassium 4.2 mmol/L (3.3-5.1); Sodium 139 mmol/L (135-145)
[2025-07-07 12:25] LABS: Thyroid Stimulating Hormone 3.79 uIU/mL (0.32-4.0)
[2025-07-07 12:26] LABS: Free T4 (Free Thyroxine) 1.15 ng/dL (0.71-1.85)
[2025-07-09 04:19] LABS: HBc Num1 0.04 S/CO (0.00-0.79); HBsAGNum1 0.70 S/CO (0.00-0.99); Hepatitis B Surface Antigen Negative (Negative); ~HepC Num1 0.06 S/CO (0.00-0.79); ~Hepatitis C Antibody Nonreactive (Nonreactive)
[2025-07-11 21:38] LABS: Anti Glomerular Basement Memb <1.0 AI; Proteinase 3 PR3 Antibodies <1.0 AI
[2025-07-13 00:09] LABS: Phospholipase A2 IgG ELISA <4 RU/mL; Phospholipase A2 IgG IFA NEGATIVE (NEGATIVE)
== END 2025-07-07 09:07 | disposition home or self-care (01) ==
LOC: HO.LAB 09:06
PROVIDERS: Absent Provider Student in an Organized Health Care Education/Training Program; PCP Physician Assistant; Referring Provider Physician Assistant; Visit Provider Internal Medicine Nephrology
DX: N17.9 Acute kidney failure, unspecified (principal); N18.9 Chronic kidney disease, unspecified; E03.9 Hypothyroidism, unspecified; Z85.850 Personal history of malignant neoplasm of thyroid; Z01.84 Encounter for antibody response examination
CPT/HCPCS: 36415; 80051; 82310; 82565; 82784; 83520; 84439; 84443; 84520; 85025; 86021; 86160; 86225; 86255; 86334; 86704; 86803; 87340

== ENCOUNTER 2025-07-14 10:20 | Outpatient (REF) | payer OTHER, SELFPAY ==
--- OUTSIDE RECORDS SUMMARY | 2025-07-14 10:23 | XMS_ITS | Clinical Summary ---
Author Organization [facility] Address [address] [place] [phone] Phone Care Team Providers Care Ict Systems Test Engineer Name Role Phone Ricky Raymond MD Primary [...] EDT) SODIUM 139 133 - 146 mmol/L [facility] POTASSIUM 5.9(H) 3.3 - 5.1 mmol/L [facility] Comment:Specimen slightly he molyzed, result may be falsely elevated. CHLORIDE 105 96 - 108 mmol/L [facility] CO2 25 21 - 35 mmol/L [facility] BUN 27(H) 6 - 19 mg/dL [facility] CREATININE 1.40 0.5 - 1.5 mg/dL [facility] GLUCOSE 76 70 - 99 mg/dL [facility] ALBUMIN 4.8 3.9 - 4.8 g/dL [facility] TOTAL PROTEIN 7.8 6.5 - 8.0 g/dL [facility] CALCIUM 9.4 8.4 - 10.3 mg/dL [facility] ALKALINE PHOSPHATASE 78 39 - 117 U/L [facility] TOTAL BILIRUBIN 0.6 0.0 - 1.2 mg/dL [facility] AST 18 0 - 37 U/L [facility] ALT 14 0 - 40 U/L [facility] GLOBULIN 3.0 1 - 4.8 g/dL [facility] EGFR 62 >59 mL/min/1.7 3m2 [facility] Comment:Estimated glomerular filtration rate calculated using the CKD-EPI refit equation. ANION GAP 15 10 - 20 mmol/L [facility] Blood 06/19/2023 9:3 5 AM EDT 06/19/2023 9:39 AM EDT Kenny Valerio DO LAB BLOOD ORDERABLES Final Resul t [address] [address] * TSH (06/19/2023 9:35 AM EDT) TSH 3.90 0.27 - 4.20 uIU/mL [facility] Blood 06/19/2023 9:35 AM EDT 06/19/2023 9:39 AM EDT Kenny Valerio DO LAB BLOOD ORDERABLES Final Resul t [address] [address] from Last 3 Months or Most Recently Relevant to Health Maintenance Insurance [employer] OUT OF STATE PPO [employer] OUT OF STATE PPO [employer] OUT OF STATE PPO BLUE [place] OUT OF STATE PPO BLUE [place] OUT OF STATE PPO BLUE [place] OUT OF STATE PPO Care Teams Ict Systems Test Engineer Relationship Specialty Start Date End Date Ricky Raymond MD [address] [place] [address] PCP - General Family Medicine 09/28/22 Additional Source Comments The information contained in this document represents components of the legal health record. It is not the complete legal health record.[facility]
[2025-07-14 10:46] LABS: Appearance Urine Clear; Glucose Urine UA Negative (Negative); PH 7.0 (5.0-9.0); Specific Gravity - Urine 1.015 (1.005-1.025)
[2025-07-14 12:11] LABS: Total Protein Urine Random < 7 mg/dL (<12)
== END 2025-07-14 10:21 | disposition home or self-care (01) ==
LOC: HO.LNP 10:20
PROVIDERS: Visit Provider Internal Medicine Nephrology
DX: N17.9 Acute kidney failure, unspecified (principal); N18.9 Chronic kidney disease, unspecified
CPT/HCPCS: 81003; 82570; 84156; 86335

== ENCOUNTER 2025-07-19 15:53 | Outpatient (AMB) | payer OTHER, SELFPAY ==
--- NOTE | 2025-07-19 16:01 | A.OFFPC_ITS ---
Vital Signs 07/19/25 16:02 Height 6 ft 2 in Weight 245 lb BMI 31.5 BP 130/74 Blood Pressure Location Lt brachial Position Sitting Pulse 82 Pulse Source Pulse Oximeter Temp 97.3 F Temp Source Temporal Artery Scan Pulse Oximetry (%) 98 Oxygen Delivery Method Room Air Intake Visit Reasons: f/u DMII Intake Note: Patient is here to follow up on DM. Fishing Tool Technician Oil Well Required: No Health And Safety Instructor: Not Required per policy Accompanied by: Self / Same As Patient Allergies lisinopril Adverse Reaction (Intermediate, Uncoded 07/19/25 16:16) Dizziness Medication List - Last Reconciled 07/19/25 by Oliver Zelaya PA-C alcohol swabs 1 pad topical QIDACHS allopurinol 100 mg PO DAILY blood sugar diagnostic (FreeStyle Lite Strips) Test four times a day or as directed. blood-glucose meter (FreeStyle Lite Meter kit) As Directed blood-glucose sensor (FreeStyle Jv 3 Plus Sensor device) As directed blood-glucose,oriental rug repairer,cont (FreeStyle Jv 3 [place]) As directed insulin glargine (Lantus Solostar U-100 Insulin) 12 units subcut DAILY insulin regular human (Novolin R FlexPen) 1 sliding scale dose subcutaneously; Blood Sugar: <150 - 0 units 151-200 - 2 units 201-250 - 4 units 251-300 - 6 units 301-350 - 8 units >350 - 10 units 30 days lancets (FreeStyle Lancets) Test four times a day or as directed. levothyroxine 200 mcg PO DAILY pen needle, diabetic Use four times a day or as directed. Tobacco use date assessed: 07/19/25 Dental Screening Dental Screen Date: 11/22/24 HPI f/u DMII HPI Details Patient is a 49 year male here today for a follow-up visit. Patient has a past medical history significant for type 2 diabetes obesity, ckd, Thyroid Cancer ( Total thyroidecomy 20 years ago) , hypertension and hyperlipidemia. Recently had hospitalization for hyperglycemia, was noted to have kidney issue that he has followed up with Nephrology about. .. Type 2 diabetes: He is now on insulin therapy .. History of thyroid cancer status post total thyroidectomy: Continues on levothyroxine indefinitely. Has been taking his levothyroxine morning now. Most recent TSH stable, has establish care with thyroid chemical laboratory scientist .. Hypertension: Blood pressure acceptable today in office. He has stopped taking lisinopril 10 mg as he felt dizzy. Will transitioned to losartan for renal prot ection. .. class 1 Obesity: He does understand his BMI is over 30 will try to work on being more physically active and adapt to better eating habits to reduce his weight Laboratory Tests 04/11/25 07/07/25 11:43 09:36 RBC 5.29 Creatinine 1.33 POC Glucose 212 H TSH 3.79 PFSH Medical History Marijuana use Alcohol use Pancreatitis DMII (diabetes mellitus, type 2) HTN (hypertension) Hypothyroidism (acquired) History of malignant neoplasm of thyroid HLD (hyperlipidemia) Gout Class 1 obesity Surgical History History of thyroid surgery History of cholecystectomy Social History Housing: House Alcohol intake: current Alcohol intake frequency: 0-2 drinks per day Alcohol type: hard liquor Comment: Patient drinks beer on the weekends usually a 6 pack or more Patient Tobacco Use Status: Never used Tobacco e-Cigarette/Vaping Use: Never Used Second Hand Smoke Exposure: No Substance Use Type: Marijuana service: No Current occupational status: employed 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- [employer] Cognitive needs: No Hearing needs: No Vision needs: Yes (Glasses) Questionnaire Thrive Questionnaire Date Thrive assessed: 11/22/24 I am a: Patient What is your living situation today?: I have a steady place to live Within the past 12 months, did the food you bought not last and you didn't have the money to get more?: Never true Within the past 12 months, did you worry whether your food would run out before you got money to buy more?: Never true Do you have trouble paying for medicines?: No Do you have trouble getting transportation to medical appointments?: No Do you have trouble paying your heating and electricity bill?: No Do you have trouble taking care of your child, family member or friend?: No Do you have trouble with day-to-day activities such as bathing, preparing meals, shopping, managing finances, etc.?: No Are you currently unemployed and looking for a job?: No Are you interested in more education?: No Please select the resources that you would like help with: None Currently or been in a relationship where the following occur: No concerns reported THRIVE Score: 0 LUC-7 AMB Questionnaire LUC-7 Date LUC - 7 assessed: 11/22/24 Source: Developed by Drs. Oziel Sharif, Erna Bacon, Mart Espinoza and colleagues, with an educational zunilda from [employer]. Physical exam (Primary Care) Vital Signs: Last Vital Signs Temp 97.3 F 07/19/25 16:02 Pulse 82 07/19/25 16:02 BP 130/74 07/19/25 16:02 Pulse Ox 98 07/19/25 16:02 Oxygen Delivery Method Room Air 07/19/25 16:02 BMI result Body Mass Index 31.5 Tobacco/Smoking Status: Tobacco use Status Tobacco use date assessed 07/19/25 07/19/25 16:10 Patient Tobacco Use Status Never used Tobacco 07/19/25 16:10 e-Cigarette/Vaping Use Never Used 07/19/25 16:10 Thrive Assessment: Date of Thrive Assessment Date Thrive assessed 11/22/24 07/19/25 16:10 Currently or been in a relationship where the following occur: No concerns reported Results AMB Hemoglobin A1c AMB Hemoglobin A1c 7.8 % Last Edit by COTY Stark on 07/19/25 16:18 Coding Diagnoses Type 2 diabetes mellitus with diabetic polyneuropathy, with long-term current use of insulin E11.42; Z79.4 Diabetes mellitus intermission coordinator insulin use: with intermission coordinator use Diabetes mellitus complication status: with neurologic complications Diabetes mellitus complication detail: with polyneuropathy Primary hypertension I10 Hypertension type: primary hypertension Hypothyroidism (acquired) E03.9 Mixed hyperlipidemia E78.2 Hyperlipidemia type: mixed hyperlipidemia History of malignant neoplasm of thyroid Z85.850 Class 1 obesity E66.811 Assessment & Plan Assessment & Plan (1) DMII (diabetes mellitus, type 2): Code(s): E11.9 - Type 2 diabetes mellitus without complications Category: Medical Qualifiers: Diabetes mellitus intermission coordinator insulin use: with intermission coordinator use Diabetes mellitus complication status: with neurologic complications Diabetes mellitus complication detail: with polyneuropathy Qualified Code(s): E11.42 - Type 2 diabetes mellitus with diabetic polyneuropathy; Z79.4 - 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 Will consider increasing his metformin to a 1000 b.i.d. He does not often take his blood sugar though when he does he reports his blood sugars are usually in the 200s. Goal A1c is to be below 7.0 (2) HTN (hypertension): Code(s): I10 - Essential (primary) hypertension Category: Medical Qualifiers: Hypertension type: primary hypertension Qualified Code(s): I10 - Essential (primary) hypertension Plan: Patient's blood pressure acceptable today in office.. He had restarted lisinopril 10 mg though felt dizzy with the medication. will transitioned to losartan 25 mg for renal protection. Goal blood pressure to be below 140/90 (3) Hypothyroidism (acquired): Code(s): E03.9 - Hypothyroidism, unspecified Category: Medical Plan: Patient is status post total thyroidectomy secondary to thyroid cancer. Continues to have acquired hypothyroidism thus uses levothyroxine 137 mcg. He has establish with endocrinology thyroid specialist. Most recent TSH stabilized (4) HLD (hyperlipidemia): Code(s): E78.5 - Hyperlipidemia, unspecified Category: Medical Qualifiers: Hyperlipidemia type: mixed hyperlipidemia Qualified Code(s): E78.2 - Mixed hyperlipidemia Plan: Patient continues on gemfibrozil for his cholesterol. Will recheck fasting lipids in if LDL 100 consider statin therapy. Goal LDL to be below 100 (5) History of malignant neoplasm of thyroid: Code(s): Z85.850 - Personal history of malignant neoplasm of thyroid Category: Medical Plan: He is status post thyroidectomy, has establish care with a new chemical laboratory scientist here in [place]. He has started taking his levothyroxine in the morning on an empty stomach. Most recent TSH was stable. (6) Class 1 obesity: Code(s): E66.811 - Obesity, class 1 Category: Medical Plan: Have noted weight loss since last office visit, will increase his Ozempic dose to 1 mg in hopes he will be able to lose more weight and get better glycemic control. Orders: Orders AMB Hemoglobin A1c Today E11.42 - Type 2 diabetes mellitus with diabetic meg yneuropathy Medications: Changed From insulin regular human (Novolin R FlexPen) 1 sliding scale dose subcutaneously; Blood Sugar: <150 - 0 units 151-200 - 2 units 201-250 - 4 units 251-300 - 6 units 301-350 - 8 units >350 - 10 units 15 mL 1RF 30 days E11.42 - Type 2 diabetes mellitus with diabetic polyneuropathy To insulin regular human (Novolin R FlexPen) 1 sliding scale dose subcutaneously; Blood Sugar: <150 - 4 units 151-200 - 8 units 201-250 - 12 units 251-300 - 16 units 301-350 - 20 units >350 - 24 units 15 mL 2RF 30 days E11.42 - Type 2 diabetes mellitus with diabetic polyneuropathy From insulin glargine (Lantus Solostar U-100 Insulin) 18 units subcut DAILY diabetes E11.42 - Type 2 diabetes mellitus with diabetic polyneuropathy To insulin glargine (Lantus Solostar U-100 Insulin) 18 units (0.18 mL) subcut DAILY 15 mL 3RF diabetes 30 days E11.42 - Type 2 diabetes mellitus with diabetic polyneuropathy
[2025-07-19 16:02] VITALS: BP 130/74; PULSE 82; TEMP 36.3; O2SAT 98; BMI 31.5
--- OUTSIDE RECORDS SUMMARY | 2025-07-19 17:05 | XMS_ITS | Clinical Summary ---
Author Organization [facility] Address [address] [place] [address] Phone Care Team Providers Care Diet Aide Name Role Phone Ricky Raymond MD Primary [...] EDT) SODIUM 139 133 - 146 mmol/L [facility] POTASSIUM 5.9(H) 3.3 - 5.1 mmol/L [facility] Comment:Specimen slightly he molyzed, result may be falsely elevated. CHLORIDE 105 96 - 108 mmol/L [facility] CO2 25 21 - 35 mmol/L [facility] BUN 27(H) 6 - 19 mg/dL [facility] CREATININE 1.40 0.5 - 1.5 mg/dL [facility] GLUCOSE 76 70 - 99 mg/dL [facility] ALBUMIN 4.8 3.9 - 4.8 g/dL [facility] TOTAL PROTEIN 7.8 6.5 - 8.0 g/dL [facility] CALCIUM 9.4 8.4 - 10.3 mg/dL [facility] ALKALINE PHOSPHATASE 78 39 - 117 U/L [facility] TOTAL BILIRUBIN 0.6 0.0 - 1.2 mg/dL [facility] AST 18 0 - 37 U/L [facility] ALT 14 0 - 40 U/L [facility] GLOBULIN 3.0 1 - 4.8 g/dL [facility] EGFR 62 >59 mL/min/1.7 3m2 [facility] Comment:Estimated glomerular filtration rate calculated using the CKD-EPI refit equation. ANION GAP 15 10 - 20 mmol/L [facility] Blood 06/19/2023 9:3 5 AM EDT 06/19/2023 9:39 AM EDT Kenny Valerio DO LAB BLOOD ORDERABLES Final Resul t [address] [address] * TSH (06/19/2023 9:35 AM EDT) TSH 3.90 0.27 - 4.20 uIU/mL [facility] Blood 06/19/2023 9:35 AM EDT 06/19/2023 9:39 AM EDT Kenny Valerio DO LAB BLOOD ORDERABLES Final Resul t [address] [address] from Last 3 Months or Most Recently Relevant to Health Maintenance Insurance [employer] OUT OF STATE PPO [employer] OUT OF STATE PPO [employer] OUT OF STATE PPO [employer] OUT OF STATE PPO BL[employer] OUT OF STATE PPO BLUE [place] OUT OF STATE PPO Care Teams Diet Aide Relationship Specialty Start Date End Date Ricky Raymond MD [address] [place] [address] PCP - General Family Medicine 09/28/22 Additional Source Comments The information contained in this document represents components of the legal health record. It is not the complete legal health record.[facility]
== END 2025-07-19 16:51 | disposition home or self-care (01) ==
LOC: HO.HMCH 15:53
PROVIDERS: PCP Physician Assistant; Visit Provider Physician Assistant
DX: E11.42 Type 2 diabetes mellitus with diabetic polyneuropathy (principal)

== ENCOUNTER → 2025-07-19 15:53 | Outpatient (BNVA) | payer OTHER, SELFPAY | PROVIDERS: PCP Physician Assistant; Visit Provider Physician Assistant | DX: E11.42 Type 2 diabetes mellitus with diabetic polyneuropathy (principal); E11.22 Type 2 diabetes mellitus with diabetic chronic kidney disease; I12.9 Hypertensive chronic kidney disease with stage 1 through stage 4 chronic kidney disease, or unspecified chronic kidney disease; E66.9 Obesity, unspecified; N18.9 Chronic kidney disease, unspecified; E89.0 Postprocedural hypothyroidism; E66.811 Obesity, class 1; Z79.4 Long term (current) use of insulin | CPT/HCPCS: 83036; 99212 ==

== ENCOUNTER 2025-07-27 15:24 | Outpatient (AMB) | payer OTHER, SELFPAY ==
--- NOTE | 2025-07-27 15:23 | HO.NEPHOV ---
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 He has high BMI as well as dyslipidemia. He had thyroid Cancer & had undergone total thyroidectomy 20 years ago for which he follows up with Extrusion Press Supervisor. He has type 2 DM and had not been regularly checking his blood sugars in the past. He is not having any polydipsia or polyuria. He is hypertensive and his blood pressure acceptable today in office. He was on lisinopril 10 mg but had dizziness and was discontinued. Then he was on losartan for renal protection, which was discontinued as well . He claims to be not taking excess NSAID's and maintaining good hydration. He has no hypercalcemia, no H/O proteinuria or any prosatic issues. He denies using drugs and has no H/O hepatitis or HIV. His serum creatinine had gone upto 2.32 which has improved to 1.33 now. He denies hematuria, dysuria, recent antibiotic intake, epistaxis, hemetemesis or melena. He had no specific systemic complaints at the time of this office visit. [facility] Medical History Marijuana use Alcohol use Pancreatitis DMII (diabetes mellitus, type 2) HTN (hypertension) Hypothyroidism (acquired) History of malignant neoplasm of thyroid HLD (hyperlipidemia) Gout Class 1 obesity Surgical History History of thyroid surgery History of cholecystectomy Social History Housing: House Alcohol intake: current Alcohol intake frequency: 0-2 drinks per day Alcohol type: hard liquor Comment: Patient drinks beer on the weekends usually a 6 pack or more Patient Tobacco Use Status: Never used Tobacco e-Cigarette/Vaping Use: Never Used Second Hand Smoke Exposure: No Substance Use Type: Marijuana service: No Current occupational status: employed 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- [employer] Cognitive needs: No Hearing needs: No Vision needs: Yes (Glasses) Review of Systems Const All systems reviewed & are unremarkable except as noted in HPI and below Physical Exam Vital Signs: Last Vital Signs Pulse 87 07/27/25 15:37 BP 132/92 H 07/27/25 15:37 Pulse Ox 98 07/27/25 15:37 Oxygen Delivery Method Room Air 07/27/25 15:37 BMI result Body Mass Index 31.5 Const General: comfortable and no acute distress Orientation/consciousness: patient oriented x3 HEENT Head: Yes normocephalic Mouth: Normal oral and palatal mucosa present Eyes EOM: EOMs intact bilaterally Neck Neck: Yes supple Resp Auscultation: clear to auscultation bilaterally Cardio Jugular venous distension: no JVD Rate: regular rate GI Palpation (GI): Soft to palpation Auscultation: normal bowel sounds General: Yes no CVA tenderness Back/Spine/Pelvis Back: no CVA tenderness Skin General skin exam: no rashes or lesions noted Neuro General: patient oriented x3 and moves all extremities Extrem General: Yes no pedal edema Results Reviewed Nephrology Results: Hgb, (14.0-18.0) 14.9 g/dl 07/07/25 WBC, (4.8-10.8) 5.0 X10*3/uL 07/07/25 Plt Count, (160-400) 176 X10*3/uL 07/07/25 Sodium, (135-145) 139 mmol/L 07/07/25 Potassium, (3.3-5.1) 4.2 mmol/L 07/07/25 Chloride, (96-108) 103 mmol/L 07/07/25 Carbon Dioxide, (22-29) 26 mmol/L 07/07/25 BUN, (9-16) 24 mg/dL H 07/07/25 Creatinine, (0.5-1.4) 1.33 mg/dL 07/07/25 Calcium, (8.4-10.2) 8.9 mg/dL 07/07/25 Urine Protein, (Neg-Trace) Negative mg/dL 07/14/25 Urine Creatinine 72.41 mg/dL 07/14/25 Protein/Creatinin Ratio TNP 07/14/25 Assessment & Plan Assessment & Plan (1) HTN (hypertension): Code(s): I10 - Essential (primary) hypertension Category: Medical Qualifiers: Hypertension type: primary hypertension Qualified Code(s): I10 - Essential (primary) hypertension (2) CKD stage 3a, GFR 45-59 ml/min: Code(s): N18.31 - Chronic kidney disease, stage 3a Category: Medical Plan 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 He had THERON causing serum creatinine to go up to 2.32 which has improved to 1.33 after discontinuing ACEI/ARB. He has no prostatic issues, neurogenic bladder, nausea, vomiting or diarrhea. He should keep up with good fluid intake. He will be a great candidate for SGLT2i and low dose ACEI ( I plan to start low dose ACEI @ next visit) . He should minimize or avoid NSAID's.Answered all questions. Orders: Orders Protein Creatinine Ratio, Ur 6 Months I10 - Essential (primary) hypertension, N18.31 - Chronic kidney disease, stage 3a Blood Urea Nitrogen 6 Months I10 - Essential (primary) hypertension, N18.31 - Chronic kidney disease, stage 3a Electrolytes 6 Months I10 - Essential (primary) hypertension, N18.31 - Chronic kidney disease, stage 3a Creatinine 6 Months I10 - Essential (primary) hypertension, N18.31 - Chronic kidney disease, stage 3a Coding Level of Care Code Est Pt Level 4 (65161) Diagnoses Primary hypertension I10 Hypertension type: primary hypertension CKD stage 3a, GFR 45-59 ml/min N18.31
[2025-07-27 15:37] VITALS: BP 132/92; PULSE 87; O2SAT 98; BMI 31.5
--- OUTSIDE RECORDS SUMMARY | 2025-07-27 15:50 | XMS_ITS | Clinical Summary ---
Author Organization [facility] Address [address] [place] [phone] Phone Care Team Providers Care Home Appliance Tech Name Role Phone Ricky Raymond MD Primary [...] EDT) SODIUM 139 133 - 146 mmol/L [facility] POTASSIUM 5.9(H) 3.3 - 5.1 mmol/L [facility] Comment:Specimen slightly he molyzed, result may be falsely elevated. CHLORIDE 105 96 - 108 mmol/L [facility] CO2 25 21 - 35 mmol/L [facility] BUN 27(H) 6 - 19 mg/dL [facility] CREATININE 1.40 0.5 - 1.5 mg/dL [facility] GLUCOSE 76 70 - 99 mg/dL [facility] ALBUMIN 4.8 3.9 - 4.8 g/dL [facility] TOTAL PROTEIN 7.8 6.5 - 8.0 g/dL [facility] CALCIUM 9.4 8.4 - 10.3 mg/dL [facility] ALKALINE PHOSPHATASE 78 39 - 117 U/L [facility] TOTAL BILIRUBIN 0.6 0.0 - 1.2 mg/dL [facility] AST 18 0 - 37 U/L [facility] ALT 14 0 - 40 U/L [facility] GLOBULIN 3.0 1 - 4.8 g/dL [facility] EGFR 62 >59 mL/min/1.7 3m2 [facility] Comment:Estimated glomerular filtration rate calculated using the CKD-EPI refit equation. ANION GAP 15 10 - 20 mmol/L [facility] Blood 06/19/2023 9:3 5 AM EDT 06/19/2023 9:39 AM EDT Kenny Valerio DO LAB BLOOD ORDERABLES Final Resul t [address] [phone] * TSH (06/19/2023 9:35 AM EDT) TSH 3.90 0.27 - 4.20 uIU/mL [facility] Blood 06/19/2023 9:35 AM EDT 06/19/2023 9:39 AM EDT Kenny Valerio DO LAB BLOOD ORDERABLES Final Resul t [address] [address] from Last 3 Months or Most Recently Relevant to Health Maintenance Insurance [employer] OUT OF STATE PPO [employer] OUT OF STATE PPO [employer] OUT OF STATE PPO BL[employer] OUT OF STATE PPO [employer] OUT OF STATE PPO [employer]UE [employer] OUT OF STATE PPO Care Teams Home Appliance Tech Relationship Specialty Start Date End Date Ricky Raymond MD [address] [place] [phone] PCP - General Family Medicine 09/28/22 Additional Source Comments The information contained in this document represents components of the legal health record. It is not the complete legal health record.[facility]
== END 2025-07-27 16:01 | disposition home or self-care (01) ==
LOC: HO.HKA 15:24
PROVIDERS: PCP Physician Assistant; Visit Provider Internal Medicine Nephrology
DX: I10 Essential (primary) hypertension (principal); N18.31 Chronic kidney disease, stage 3a
CPT/HCPCS: 99214

== ENCOUNTER → 2025-07-27 15:24 | Outpatient (BNVA) | payer OTHER, SELFPAY | PROVIDERS: PCP Physician Assistant; Visit Provider Internal Medicine Nephrology | DX: E11.22 Type 2 diabetes mellitus with diabetic chronic kidney disease (principal); I12.9 Hypertensive chronic kidney disease with stage 1 through stage 4 chronic kidney disease, or unspecified chronic kidney disease; N18.31 Chronic kidney disease, stage 3a | CPT/HCPCS: 99212 ==

== ENCOUNTER → 2025-08-17 15:21 | Outpatient (BNV) | payer OTHER, SELFPAY | PROVIDERS: PCP Physician Assistant; Visit Provider Radiology Diagnostic Ultrasound | DX: I10 Essential (primary) hypertension (principal) | CPT/HCPCS: 76775; 93975 ==

== ENCOUNTER 2025-08-17 15:24 | Outpatient (REF) | payer OTHER, SELFPAY ==
--- NOTE | ~2025-08-17 | US_ITS ---
EXAMINATION: US RENAL US RENAL DOPPLER CLINICAL INFORMATION: I10 - Essential (primary) hypertension COMPARISON: None. TECHNIQUE: Real-time imaging of the kidneys and bladder. Study performed with grayscale, color and spectral Doppler. FINDINGS: Exam limited by breathing motion and body habitus. RETROPERITONEAL ULTRASOUND: RIGHT KIDNEY: There is no evidence of cortical thinning, hydronephrosis or calculus. The right kidney measures 12.2 x 4.9 x 4.8 cm. LEFT KIDNEY: There is no evidence of cortical thinning, hydronephrosis or calculus. Soft tissue prominence in the midportion of the renal parenchyma, with echogenicity similar to the renal parenchyma, could reflect a prominent column of Toni. The left kidney measures 12 x 4.4 x 4.3 cm. BLADDER: The urinary bladder is normal. There is no pelvic free fluid. RENAL DOPPLER: Peak systolic velocities are measured as follows: Proximal abdominal aorta: 83.4 cm/sec MAIN RENAL ARTERY; (normal < 200 cm/sec) Right main renal artery proximal: 128 cm/sec Right main renal artery mid: 120 cm/sec Right main renal artery distal: 90.3 AP cm/sec Left main renal artery proximal: 155 cm/sec Left main renal artery mid: 87.6 cm/sec Left main renal artery distal: 89.5 cm/sec Right Renal artery/aortic ratio: 1.53 (A RAR are greater than 3.5 is abnormal.) Left renal artery/aortic ratio: 1.86 (A RAR are greater than 3.5 is abnormal.) RIGHT SEGMENTAL ARTERY RESISTIVE INDICES: (normal less than 0.8) Right Upper: 0.59 Right mid: 0.6 Right lower: 0.57 LEFT SEGMENTAL ARTERY RESISTIVE INDICES: (normal less than 0.8) Left kidney: Upper: 0.59 Left mid: 0.6 Left lower: 0.61 MAIN RENAL VEIN: Right and left renal veins are Patent with normal flow. US/US renal doppler IMPRESSION: Bilateral renal ultrasound and Doppler examination, is within normal limits. Soft tissue prominence in the midpole of the left kidney, could reflect a prominent column of Toni. Electronically signed by: Eric Zacarias MD 08/20/2025 04:09 PM EDT
== END 2025-08-17 15:25 | disposition home or self-care (01) ==
LOC: HO.US 15:24
PROVIDERS: PCP Physician Assistant; Visit Provider Internal Medicine Nephrology
DX: I12.9 Hypertensive chronic kidney disease with stage 1 through stage 4 chronic kidney disease, or unspecified chronic kidney disease (principal); N18.9 Chronic kidney disease, unspecified; N17.9 Acute kidney failure, unspecified
CPT/HCPCS: 76775; 93975